=== PATIENT | female | born 1940 | race African-American/Black ===

== ENCOUNTER 2016-10-24 06:11 | Inpatient (IN) | payer MEDICARE, MEDICAID ==
[~2016-10-24] VITALS: Ht 165.1 cm; Wt 60.3 kg
[~2016-10-24 06:11] MED LIST: LEVO50TA52 PO
[2016-10-24 07:51] LABS: BASOPHILS % 0.3 % (0.0-2.0); EOSINOPHILS % 4.3 % (0.0-5.0); HEMATOCRIT. 33.7 % (36.0-48.0); HEMOGLOBIN. 11.1 g/dL (12.0-16.0); LYMPHOCYTES % 33.1 % (20.0-50.0); MEAN CORPUSCULAR HEMOGLOBIN 30.3 pg (28.0-32.0); MEAN PLATELET VOLUME 8.4 fl (7.4-10.4); MONOCYTES % 9.1 % (2.0-8.0); NEUTROPHILS % 53.2 % (40.0-76.0); PLATELET 184 x1000/uL (130-400); RED BLOOD CELL COUNT 3.66 mill/uL (4.2-5.4); RED CELL DISTRIBUTION WIDTH 15.3 % (11.6-14.6)
[2016-10-24 08:03] LABS: CARBON DIOXIDE 33 mEq/L (21-32); CHLORIDE 106 mEq/L (98-107)
[2016-10-24 08:09] LABS: TROPONIN I < 0.02 ng/mL (0.00-0.04)
[2016-10-24 08:50] LABS: CLARITY URINE CLEAR (CLEAR); COLOR URINE YELLOW (YELLOW); GLUCOSE URINE NEGATIVE (NEGATIVE); KETONES URINE NEGATIVE (NEGATIVE); LEUKOCYTE ESTERASE URINE NEGATIVE (NEGATIVE); NITRITE URINE NEGATIVE (NEGATIVE); OCCULT BLOOD URINE NEGATIVE (NEGATIVE); PROTEIN URINE NEGATIVE (NEGATIVE); SPECIFIC GRAVITY URINE 1.012 (1.005-1.030); UROBILINOGEN URINE 0.2 E.U./dL (0.2-1.0)
[2016-10-24] MEDS ORDERED: AMLO5TAB88 (10:30)
[2016-10-24] MEDS ORDERED: ASPI-1158 (10:30)
[2016-10-24] MEDS ORDERED: SODIUM CHLORIDE 0.9% 1,000 ML IV ONE (11:00)
[2016-10-24] MEDS ORDERED: MAGNESIUM/ALUMINUM HYDROXIDE/SIMETHICONE 30ML UDC PO PRN (14:30)
[2016-10-24] MEDS ORDERED: DOCUSATE SODIUM 100MG CAPSULE PO PRN (14:30)
[2016-10-24] MEDS ORDERED: HYDROMORPHONE HCL/PF 2MG/ML CPJ IV PRN (14:30)
[2016-10-24] MEDS ORDERED: LORAZEPAM 0.5MG TABLET PO PRN (14:30)
[2016-10-24] MEDS ORDERED: DIPHENHYDRAMINE 50MG/ML VIAL IV PRN (14:30)
[2016-10-24] MEDS ORDERED: ACETAMINOPHEN 325MG TABLET PO PRN (14:30)
[2016-10-24] MEDS ORDERED: ACETAMINOPHEN 650MG SUPP PR PRN (14:30)
[2016-10-24] MEDS ORDERED: ONDANSETRON HCL 4MG/2ML VIAL IV PRN (14:30)
[2016-10-24] MEDS ORDERED: LORAZEPAM 2MG/ML CPJ IV PRN (14:30)
[2016-10-24] MEDS ORDERED: SENNOSIDES 8.6MG TABLET PO PRN (15:15)
[2016-10-24 15:25] LABS: T4 FREE 1.06 ng/dL (0.76-1.46)
[2016-10-24 17:00] VITALS: BP 140/80
[2016-10-24] MEDS: CLONIDINE 0.1MG TABLET PO PRN (18:32)
[2016-10-24] MEDS: DOCUSATE SODIUM 100MG CAPSULE PO SCH (18:37)
[2016-10-24] MEDS: OMEPRAZOLE 20MG CAPSULE EXTENDED RELEASE PO SCH (18:37)
[2016-10-24] MEDS: SODIUM CHLORIDE 0.45% 1,000 ML IV SCH (18:51)
[2016-10-24 20:00] VITALS: BP 129/78
[2016-10-24] MEDS: AMLODIPINE 5MG TABLET PO SCH (21:00)
[2016-10-25] VITALS: BP 162/88
[2016-10-25 04:00] VITALS: BP 166/83
[2016-10-25] MEDS: CLONIDINE 0.1MG TABLET PO PRN (05:33)
[2016-10-25] MEDS: OMEPRAZOLE 20MG CAPSULE EXTENDED RELEASE PO SCH (05:33)
[2016-10-25] MEDS: LEVOTHYROXINE SODIUM 75MCG TABLET PO SCH (05:33)
[2016-10-25 07:07] LABS: BASOPHILS % 1.7 % (0.0-2.0); CARBON DIOXIDE 29 mEq/L (21-32); CHLORIDE 105 mEq/L (98-107); CREATINE KINASE 136 IU/L (26-192); CREATINE KINASE MB FRACTION 2.1 ng/mL (0.5-3.6); EOSINOPHILS % 4.6 % (0.0-5.0); HEMATOCRIT. 34.5 % (36.0-48.0); HEMOGLOBIN. 11.4 g/dL (12.0-16.0); LYMPHOCYTES % 28.6 % (20.0-50.0); MEAN CORPUSCULAR HEMOGLOBIN 30.5 pg (28.0-32.0); MEAN CORPUSCULAR VOLUME 92.4 fL (81.0-99.0); MEAN PLATELET VOLUME 8.6 fl (7.4-10.4); MONOCYTES % 9.8 % (2.0-8.0); NEUTROPHILS % 55.3 % (40.0-76.0); PLATELET 172 x1000/uL (130-400); RED BLOOD CELL COUNT 3.73 mill/uL (4.2-5.4); RED CELL DISTRIBUTION WIDTH 15.2 % (11.6-14.6); TROPONIN I < 0.02 ng/mL (0.00-0.04)
[2016-10-25 08:00] VITALS: BP 98/70
[2016-10-25] MEDS: AMLODIPINE 5MG TABLET PO SCH ×2 (08:58→23:10)
[2016-10-25] MEDS: SODIUM CHLORIDE 0.45% 1,000 ML IV SCH (08:58)
[2016-10-25] MEDS: DOCUSATE SODIUM 100MG CAPSULE PO SCH ×2 (08:58→16:13)
[2016-10-25] MEDS: ENOXAPARIN 40MG/0.4ML SYR SUBCUT SCH (08:58)
[2016-10-25] MEDS: ASPIRIN 81MG EC TABLET PO SCH (08:58)
[2016-10-25 10:58] LABS: *AMPHETAMINES SCREEN URINE NEGATIVE (NEGATIVE); *BARBITURATES SCREEN URINE NEGATIVE (NEGATIVE); *BENZODIAZEPINES SCREEN URINE NEGATIVE (NEGATIVE); *COCAINE SCREEN URINE NEGATIVE (NEGATIVE); CANNABINOID URINE SCREEN NEGATIVE (NEGATIVE); METHADONE URINE SCREEN NEGATIVE (NEGATIVE); OPIATES URINE SCREEN NEGATIVE (NEGATIVE); PHENCYCLIDINE URINE SCREEN NEGATIVE (NEGATIVE)
[2016-10-25 13:32] VITALS: BP 137/73
[2016-10-25 16:00] VITALS: BP 155/78
[2016-10-25 20:00] VITALS: BP 144/74
[2016-10-25] MEDS: LACTULOSE 20G/30ML UDC PO SCH (23:10)
[2016-10-26] VITALS: BP 140/74
[2016-10-26 04:00] VITALS: BP 138/72
[2016-10-26] MEDS: OMEPRAZOLE 20MG CAPSULE EXTENDED RELEASE PO SCH (07:06)
[2016-10-26] MEDS: LEVOTHYROXINE SODIUM 75MCG TABLET PO SCH (07:06)
[2016-10-26] MEDS: LACTULOSE 20G/30ML UDC PO SCH ×2 (07:06→14:00)
[2016-10-26 08:00] VITALS: BP 139/86
[2016-10-26] MEDS: DOCUSATE SODIUM 100MG CAPSULE PO SCH ×2 (08:47→16:31)
[2016-10-26] MEDS: AMLODIPINE 5MG TABLET PO SCH (08:47)
[2016-10-26] MEDS: ENOXAPARIN 40MG/0.4ML SYR SUBCUT SCH (08:47)
[2016-10-26] MEDS: ASPIRIN 81MG EC TABLET PO SCH (08:47)
[2016-10-26 12:00] VITALS: BP 130/80
[2016-10-26 12:24] VITALS: BP 139/85
[2016-10-26 16:00] VITALS: BP 100/52
== END 2016-10-26 19:15 | disposition home or self-care (01) | DRG 683 ==
LOC: ER 06:11 → ENRESERV 14:37 → 5WST 14:37
PROVIDERS: ADMIT Internal Medicine; ATTEND Internal Medicine
DX: N17.9 Acute kidney failure, unspecified (principal); I69.354 Hemiplegia and hemiparesis following cerebral infarction affecting left non-dominant side; E46 Unspecified protein-calorie malnutrition; I95.1 Orthostatic hypotension; D64.9 Anemia, unspecified; D72.819 Decreased white blood cell count, unspecified; E03.9 Hypothyroidism, unspecified; E78.00 Pure hypercholesterolemia, unspecified; E05.90 Thyrotoxicosis, unspecified without thyrotoxic crisis or storm; R47.1 Dysarthria and anarthria; R07.89 Other chest pain; E86.0 Dehydration; G90.8 Other disorders of autonomic nervous system; I11.9 Hypertensive heart disease without heart failure; Z68.22 Body mass index [BMI] 22.0-22.9, adult; Z79.899 Other long term (current) drug therapy; Z91.19 Patient's noncompliance with other medical treatment and regimen; Z79.82 Long term (current) use of aspirin; Z95.810 Presence of automatic (implantable) cardiac defibrillator; Z85.819 Personal history of malignant neoplasm of unspecified site of lip, oral cavity, and pharynx; I16.0 Hypertensive urgency
CPT/HCPCS: 36415; 71010; 74000; 80048; 80053; 80061; 80305; 81003; 82550; 82553; 83036; 83735; 83880; 84439; 84443; 84481; 84484; 85025; 85379; 92610; 93005; 93306; 93970; 96360; 96361; 96372; 99285; J1650; J7030

== ENCOUNTER 2017-01-29 16:47 | Emergency (ER) | payer MEDICARE, MEDICAID ==
[~2017-01-29] VITALS: Ht 165.1 cm; Wt 57.0 kg
[~2017-01-29 16:47] MED LIST changes: +AMLO5TAB88; +ASPI-1158
[2017-01-29 19:10] LABS: CARBON DIOXIDE 29 mEq/L (21-32); CHLORIDE 107 mEq/L (98-107)
[2017-01-29 19:15] LABS: TROPONIN I < 0.02 ng/mL (0.00-0.04)
[2017-01-29] MEDS ORDERED: HYDROCODONE/ACETAMINOPHEN 5/325MG TABLET PO ONE (19:30)
[2017-01-29 19:34] LABS: BASOPHILS % 0.6 % (0.0-2.0); EOSINOPHILS % 0.8 % (0.0-5.0); HEMOGLOBIN. 11.3 g/dL (12.0-16.0); LYMPHOCYTES % 8.7 % (20.0-50.0); MEAN CORPUSCULAR HEMOGLOBIN 30.3 pg (28.0-32.0); MEAN CORPUSCULAR VOLUME 91.3 fL (81.0-99.0); MONOCYTES % 6.5 % (2.0-8.0); NEUTROPHILS % 83.4 % (40.0-76.0); RED BLOOD CELL COUNT 3.72 mill/uL (4.2-5.4); RED CELL DISTRIBUTION WIDTH 16.1 % (11.6-14.6)
[2017-01-29 19:39] LABS: INR 1.1; PROTHROMBIN TIME 11.2 sec (9.4-11.6)
[2017-01-29 19:50] VITALS: BP 147/67
== END 2017-01-29 21:52 | disposition home or self-care (01) ==
LOC: ER 16:47
DX: M25.551 Pain in right hip (principal); I11.9 Hypertensive heart disease without heart failure; E03.9 Hypothyroidism, unspecified; M16.0 Bilateral primary osteoarthritis of hip; Z85.818 Personal history of malignant neoplasm of other sites of lip, oral cavity, and pharynx; Z79.82 Long term (current) use of aspirin; W01.0XXA Fall on same level from slipping, tripping and stumbling without subsequent striking against object, initial encounter; Y93.89 Activity, other specified; Y92.018 Other place in single-family (private) house as the place of occurrence of the external cause
CPT/HCPCS: 36415; 71010; 73522; 80053; 83690; 84484; 85025; 85610; 85730; 93005; 99285

== ENCOUNTER 2018-04-23 17:46 | Inpatient (IN) | payer MEDICARE, MEDICAID ==
[~2018-04-23] VITALS: Ht 170.2 cm; Wt 50.1 kg
[2018-04-23] MEDS ORDERED: SODIUM CHLORIDE 0.9% 1000ML BAG (SEPSIS BOLUS) IV ONE (18:45)
[2018-04-23 19:07] LABS: CLARITY URINE CLOUDY (CLEAR); COLOR URINE DARK YELLOW (YELLOW); KETONES URINE NEGATIVE (NEGATIVE); LEUKOCYTE ESTERASE URINE 1+ (NEGATIVE); NITRITE URINE NEGATIVE (NEGATIVE); OCCULT BLOOD URINE 3+ (NEGATIVE); PH URINE 5.5 (4.5-8.0); PROTEIN URINE 2+ (NEGATIVE); SPECIFIC GRAVITY URINE 1.022 (1.005-1.030)
[2018-04-23 19:29] LABS: HEMATOCRIT. 33.6 % (36.0-48.0); HEMOGLOBIN. 10.9 g/dL (12.0-16.0); MEAN CORPUSCULAR VOLUME 92.5 fL (81.0-99.0); MEAN PLATELET VOLUME 8.2 fl (7.4-10.4); PLATELET 195 x1000/uL (130-400); RED BLOOD CELL COUNT 3.63 mill/uL (4.2-5.4); RED CELL DISTRIBUTION WIDTH 15.6 % (11.6-14.6)
[2018-04-23 19:32] LABS: CHLORIDE 99 mEq/L (98-107); INR 1.1; PARTIAL THROMBOPLASTIN TIME 32.2 sec (23.4-31.0); PROTHROMBIN TIME 11.4 sec (9.1-11.1)
[2018-04-23] MEDS ORDERED: KCL 10MEQ/50ML PREMIX 50 ML IV ONE (19:45)
[2018-04-23] MEDS ORDERED: LEVOFLOXACIN 750MG PREMIX 150 ML IV ONE (19:45)
[2018-04-23 19:51] LABS: PLATELET ESTIMATE NORMAL
[2018-04-23] MEDS ORDERED: ASPIRIN 300MG SUPP PR ONE (20:45)
[2018-04-23] MEDS ORDERED: ONDANSETRON HCL 4MG/2ML INJ IV PRN (22:15)
[2018-04-23] MEDS ORDERED: ACETAMINOPHEN 325MG TABLET PO PRN (22:15)
[2018-04-23] MEDS ORDERED: CLONIDINE 0.1MG TABLET PO PRN (22:15)
[2018-04-23] MEDS ORDERED: MAGNESIUM/ALUMINUM HYDROXIDE/SIMETHICONE 30ML UDC PO PRN (22:15)
[2018-04-24] MEDS: SODIUM CHLORIDE 0.9% 1,000 ML IV SCH ×4 (01:05→17:39)
[2018-04-24 06:27] LABS: CHLORIDE 105 mEq/L (98-107)
[2018-04-24 12:30] VITALS: BP 130/62
[2018-04-24 12:53] VITALS: BP 124/68
[2018-04-24 13:04] VITALS: BP 124/68
[2018-04-24] MEDS ORDERED: LEVOTHYROXINE SODIUM 100 MCG/ VIAL IV SCH (14:00)
[2018-04-24] MEDS: SODIUM CHLORIDE 0.9% INJ 3ML FLUSH IVF SCH ×2 (15:31→21:22)
[2018-04-24 15:58] VITALS: BP 103/54
[2018-04-24] MEDS: GENTAMICIN 100MG PREMIX 50 ML IV SCH (17:40)
[2018-04-24 20:06] VITALS: BP 124/85
[2018-04-24] MEDS ORDERED: LEVOFLOXACIN 250MG PREMIX 50 ML IV SCH (21:00)
[2018-04-25 00:03] VITALS: BP 100/58
[2018-04-25 04:00] VITALS: BP 115/61
[2018-04-25] MEDS: SODIUM CHLORIDE 0.9% INJ 3ML FLUSH IVF SCH ×3 (05:16→21:28)
[2018-04-25 07:42] LABS: HEMATOCRIT. 28.4 % (36.0-48.0); HEMOGLOBIN. 9.3 g/dL (12.0-16.0); MEAN CORPUSCULAR HEMOGLOBIN 29.8 pg (28.0-32.0); MEAN CORPUSCULAR VOLUME 90.6 fL (81.0-99.0); MEAN PLATELET VOLUME 8.7 fl (7.4-10.4); PLATELET 87 x1000/uL (130-400); RED BLOOD CELL COUNT 3.13 mill/uL (4.2-5.4); RED CELL DISTRIBUTION WIDTH 15.6 % (11.6-14.6)
[2018-04-25 08:00] VITALS: BP 116/60
[2018-04-25 08:50] LABS: PLATELET ESTIMATE DECREASED
[2018-04-25] MEDS ORDERED: LEVOTHYROXINE SODIUM 100 MCG/ VIAL IV SCH (10:00)
[2018-04-25] MEDS: GENTAMICIN 100MG PREMIX 50 ML IV SCH (10:22)
[2018-04-25 11:50] VITALS: BP 126/63
[2018-04-25] MEDS ORDERED: POTASSIUM CHLORIDE INJ 40 MEQ in DEXT 5% WATER 250 ML IV NR (15:30)
[2018-04-25] MEDS: SODIUM CHLORIDE 0.9% 1,000 ML IV SCH ×2 (15:42→22:53)
[2018-04-25 15:55] VITALS: BP 109/64
[2018-04-25] MEDS: CEFEPIME 1,000 MG in DEXTROSE 5% WATER 50 ML IV SCH (17:53)
[2018-04-25 20:00] VITALS: BP 117/56
[2018-04-25] MEDS ORDERED: IOHEXOL-350 100 ML BOTTLE ONE (20:41)
[2018-04-26 00:04] VITALS: BP 105/53
[2018-04-26 04:00] VITALS: BP 110/65
[2018-04-26] MEDS ORDERED: GENTAMICIN 120MG PREMIX 100 ML IV SCH (04:00)
[2018-04-26] MEDS: SODIUM CHLORIDE 0.9% INJ 3ML FLUSH IVF SCH ×3 (05:56→21:23)
[2018-04-26] MEDS: CEFEPIME 1,000 MG in DEXTROSE 5% WATER 50 ML IV SCH ×2 (05:56→15:48)
[2018-04-26] MEDS: LEVOTHYROXINE SODIUM 25MCG TABLET PO SCH (05:57)
[2018-04-26 07:00] LABS: CHLORIDE 112 mEq/L (98-107); HEMATOCRIT. 31.4 % (36.0-48.0); HEMOGLOBIN. 10.1 g/dL (12.0-16.0); MEAN CORPUSCULAR HEMOGLOBIN 29.7 pg (28.0-32.0); MEAN PLATELET VOLUME 9.9 fl (7.4-10.4); PLATELET 71 x1000/uL (130-400); RED BLOOD CELL COUNT 3.41 mill/uL (4.2-5.4); RED CELL DISTRIBUTION WIDTH 16.2 % (11.6-14.6)
[2018-04-26 08:00] VITALS: BP 105/57
[2018-04-26 12:00] VITALS: BP 114/52
[2018-04-26 16:00] VITALS: BP 120/57
[2018-04-26 20:47] VITALS: BP 125/53
[2018-04-26] MEDS: SODIUM CHLORIDE 0.9% 1,000 ML IV SCH (21:24)
[2018-04-27] VITALS: BP 123/59
[2018-04-27] MEDS: CEFEPIME 1,000 MG in DEXTROSE 5% WATER 50 ML IV SCH ×2 (03:30→16:13)
[2018-04-27 04:36] VITALS: BP 127/62
[2018-04-27] MEDS: SODIUM CHLORIDE 0.9% INJ 3ML FLUSH IVF SCH ×3 (06:41→21:55)
[2018-04-27] MEDS: LEVOTHYROXINE SODIUM 25MCG TABLET PO SCH (07:20)
[2018-04-27 08:00] VITALS: BP 144/69
[2018-04-27 08:21] LABS: PLATELET ESTIMATE DECREASED
[2018-04-27 12:00] VITALS: BP 119/61
[2018-04-27] MEDS: SODIUM CHLORIDE 0.9% 1,000 ML IV SCH (13:56)
[2018-04-27 16:00] VITALS: BP 109/48
[2018-04-27] MEDS: DEXTROSE 5% WATER 1,000 ML IV SCH (17:09)
[2018-04-28] VITALS: BP 129/65
[2018-04-28 04:00] VITALS: BP 130/55
[2018-04-28] MEDS: CEFEPIME 1,000 MG in DEXTROSE 5% WATER 50 ML IV SCH ×2 (04:29→16:31)
[2018-04-28] MEDS: SODIUM CHLORIDE 0.9% INJ 3ML FLUSH IVF SCH ×3 (05:43→22:00)
[2018-04-28] MEDS: LEVOTHYROXINE SODIUM 25MCG TABLET PO SCH (06:51)
[2018-04-28 08:12] VITALS: BP 124/56
[2018-04-28 09:25] LABS: HEMATOCRIT. 27.1 % (36.0-48.0); HEMOGLOBIN. 8.8 g/dL (12.0-16.0); MEAN CORPUSCULAR HEMOGLOBIN 29.8 pg (28.0-32.0); MEAN CORPUSCULAR VOLUME 91.9 fL (81.0-99.0); MEAN PLATELET VOLUME 9.9 fl (7.4-10.4); PLATELET 78 x1000/uL (130-400); RED BLOOD CELL COUNT 2.95 mill/uL (4.2-5.4); RED CELL DISTRIBUTION WIDTH 16.3 % (11.6-14.6)
[2018-04-28 09:26] LABS: CHLORIDE 117 mEq/L (98-107)
[2018-04-28 09:28] LABS: INR 1.1; PARTIAL THROMBOPLASTIN TIME 30.9 sec (23.4-31.0); PROTHROMBIN TIME 10.9 sec (9.1-11.1)
[2018-04-28 09:31] LABS: PHOSPHORUS 2.2 mg/dL (2.5-4.9)
[2018-04-28] MEDS: DEXTROSE 5% WATER 1,000 ML IV SCH (10:22)
[2018-04-28 12:30] VITALS: BP 138/70
[2018-04-28] MEDS ORDERED: MIDAZOLAM HCL 5 MG/5 ML VIAL IV PRN (13:26)
[2018-04-28] MEDS ORDERED: MIDAZOLAM HCL 5 MG/5 ML VIAL ONE (13:26)
[2018-04-28] MEDS ORDERED: FENTANYL CITRATE/PF 50MCG/ML 2ML VIAL ONE (13:27)
[2018-04-28] MEDS ORDERED: SIMETHICONE 40 MG/0.6 ML 30ML ONE (13:27)
[2018-04-28] MEDS ORDERED: SODIUM CHLORIDE 0.9% 10ML VIAL ONE (15:14)
[2018-04-28 15:40] VITALS: BP 138/66
[2018-04-28 16:12] LABS: PLATELET ESTIMATE DECREASED
[2018-04-28 20:29] VITALS: BP 118/52
[2018-04-28] MEDS: METOCLOPRAMIDE HCL 10MG/2ML VIAL IV SCH (23:55)
[2018-04-29 00:20] VITALS: BP 146/66
[2018-04-29] MEDS: CEFEPIME 1,000 MG in DEXTROSE 5% WATER 50 ML IV SCH ×2 (04:21→16:39)
[2018-04-29 04:36] VITALS: BP 121/53
[2018-04-29] MEDS: METOCLOPRAMIDE HCL 10MG/2ML VIAL IV SCH ×3 (05:21→18:12)
[2018-04-29] MEDS: SODIUM CHLORIDE 0.9% INJ 3ML FLUSH IVF SCH ×3 (05:22→21:06)
[2018-04-29] MEDS: LEVOTHYROXINE SODIUM 25MCG TABLET PO SCH (06:28)
[2018-04-29 08:00] VITALS: BP 133/64
[2018-04-29] MEDS: DEXTROSE 5% WATER 1,000 ML IV SCH (08:29)
[2018-04-29 12:00] VITALS: BP 104/50
[2018-04-29 15:27] VITALS: BP 119/54
[2018-04-29 20:00] VITALS: BP 115/53
[2018-04-30] VITALS: BP 168/60
[2018-04-30] MEDS: METOCLOPRAMIDE HCL 10MG/2ML VIAL IV SCH ×3 (00:34→13:17)
[2018-04-30 04:00] VITALS: BP 124/62
[2018-04-30] MEDS: CEFEPIME 1,000 MG in DEXTROSE 5% WATER 50 ML IV SCH ×2 (05:18→16:00)
[2018-04-30] MEDS: DEXTROSE 5% WATER 1,000 ML IV SCH (05:19)
[2018-04-30] MEDS: SODIUM CHLORIDE 0.9% INJ 3ML FLUSH IVF SCH ×2 (05:20→13:19)
[2018-04-30] MEDS: LEVOTHYROXINE SODIUM 25MCG TABLET PO SCH (06:24)
[2018-04-30 08:00] VITALS: BP 136/65
[2018-04-30 11:55] LABS: HEMATOCRIT. 26.7 % (36.0-48.0); HEMOGLOBIN. 8.5 g/dL (12.0-16.0); MEAN CORPUSCULAR HEMOGLOBIN 29.5 pg (28.0-32.0); MEAN CORPUSCULAR VOLUME 92.6 fL (81.0-99.0); MEAN PLATELET VOLUME 10.6 fl (7.4-10.4); PLATELET 154 x1000/uL (130-400); RED BLOOD CELL COUNT 2.88 mill/uL (4.2-5.4)
[2018-04-30 12:03] LABS: CHLORIDE 113 mEq/L (98-107)
[2018-04-30 13:44] VITALS: BP 136/65
[2018-04-30 19:55] LABS: PLATELET ESTIMATE NORMAL
== END 2018-04-30 17:48 | DRG 871 ==
LOC: ER 17:46 → 6WST 20:58 → EDBEDREQ 21:04 → EDBEDREQTM 21:04 → ENRESERV 04-24 10:54
PROVIDERS: ADMIT Internal Medicine Nephrology; ATTEND Internal Medicine Nephrology
PROC: 0DH63UZ Insertion of Feeding Device into Stomach, Percutaneous Approach (ICD-10-PCS; principal; 2018-04-28)
PROC: 0DB68ZX Excision of Stomach, Via Natural or Artificial Opening Endoscopic, Diagnostic (ICD-10-PCS; 2018-04-28)
DX: A41.9 Sepsis, unspecified organism (principal); L89.893 Pressure ulcer of other site, stage 3; E43 Unspecified severe protein-calorie malnutrition; G93.41 Metabolic encephalopathy; R65.21 Severe sepsis with septic shock; N17.9 Acute kidney failure, unspecified; N39.0 Urinary tract infection, site not specified; E87.1 Hypo-osmolality and hyponatremia; Z68.1 Body mass index [BMI] 19.9 or less, adult; B96.1 Klebsiella pneumoniae [K. pneumoniae] as the cause of diseases classified elsewhere; E03.9 Hypothyroidism, unspecified; B96.89 Other specified bacterial agents as the cause of diseases classified elsewhere; L89.150 Pressure ulcer of sacral region, unstageable; L89.210 Pressure ulcer of right hip, unstageable; L89.890 Pressure ulcer of other site, unstageable; I10 Essential (primary) hypertension; E86.0 Dehydration; Z85.819 Personal history of malignant neoplasm of unspecified site of lip, oral cavity, and pharynx; Z95.0 Presence of cardiac pacemaker; L89.90 Pressure ulcer of unspecified site, unspecified stage; D63.8 Anemia in other chronic diseases classified elsewhere; D69.6 Thrombocytopenia, unspecified; E87.6 Hypokalemia; K29.60 Other gastritis without bleeding; Z85.850 Personal history of malignant neoplasm of thyroid; Z91.19 Patient's noncompliance with other medical treatment and regimen; Z79.82 Long term (current) use of aspirin; Z79.899 Other long term (current) drug therapy
CPT/HCPCS: 36415; 70496; 71045; 80048; 82140; 83605; 83735; 84100; 84134; 84145; 84443; 84484; 87077; 87186; 88305; 88312; 88313; 92610; 93005; 93306; 93922; 96374; 96375; 97110; 97162; 97530; 99291; A6261; C1893; J0692; J1580; J1956; J2250; J2765; J3010; J3480; J3490; J7030; J7060; J7070; Q9967

== ENCOUNTER 2018-06-15 17:31 | Inpatient (IN) | payer MEDICARE, MEDICAID ==
[~2018-06-15] VITALS: Ht 154.9 cm; Wt 59.4 kg
[2018-06-15] VITALS (15 sets, daily range): BP systolic 98–131; BP diastolic 51–64
[~2018-06-15 17:31] MED LIST changes: +ETOMIDATE 2MG/ML 10ML VIAL IV ONE; +SUCCINYLCHOLINE CHLORIDE 200MG/10ML IV ONE
[2018-06-15] MEDS ORDERED: ACETAMINOPHEN 650MG SUPP PR STA (17:47)
[2018-06-15] MEDS ORDERED: SODIUM CHLORIDE 0.9% 1000ML BAG (SEPSIS BOLUS) IV ONE (18:00)
[2018-06-15] MEDS ORDERED: PIPERACILLIN/TAZ 3.375G PREMIX 50 ML IV ONE (18:00)
[2018-06-15] MEDS ORDERED: VANCOMYCIN 1 G PREMIX 200 ML IV ONE (18:00)
[2018-06-15 18:10] LABS: HEMATOCRIT. 22.6 % (36.0-48.0); MEAN CORPUSCULAR HEMOGLOBIN 28.3 pg (28.0-32.0); MEAN CORPUSCULAR VOLUME 91.5 fL (81.0-99.0); MEAN PLATELET VOLUME 7.9 fl (7.4-10.4); PLATELET 390 x1000/uL (130-400); RED BLOOD CELL COUNT 2.47 mill/uL (4.2-5.4); RED CELL DISTRIBUTION WIDTH 22.4 % (11.6-14.6)
[2018-06-15 18:16] LABS: CHLORIDE 98 mEq/L (98-107)
[2018-06-15 18:17] LABS: INR 1.1; PROTHROMBIN TIME 11.5 sec (9.1-11.1)
[2018-06-15 18:38] LABS: PLATELET ESTIMATE NORMAL
[2018-06-15] MEDS ORDERED: MIDAZOLAM HCL 50 MG in DEXTROSE 5% WATER 40 ML IV ONE (19:00)
[2018-06-15] MEDS ORDERED: MIDAZOLAM HCL 2 MG/2 ML VIAL IV ONE (19:00)
[2018-06-15 19:45] LABS: CLARITY URINE TURBID (CLEAR); COLOR URINE YELLOW (YELLOW); KETONES URINE NEGATIVE (NEGATIVE); LEUKOCYTE ESTERASE URINE 3+ (NEGATIVE); NITRITE URINE NEGATIVE (NEGATIVE); OCCULT BLOOD URINE 3+ (NEGATIVE); PH URINE 6.5 (4.5-8.0); PROTEIN URINE 2+ (NEGATIVE); SPECIFIC GRAVITY URINE 1.015 (1.005-1.030)
[2018-06-15] MEDS ORDERED: MIDAZOLAM HCL 50 MG in DEXTROSE 5% WATER 40 ML IV NR (19:45)
[2018-06-15 21:30] LABS: BG BASE EXCESS 4.6 mmol/L (-2.0-2.0); BG CARBOXYHEMOGLOBIN 0.3 % (0.5-1.5); BG DEOXYHEMOGLOBIN 2.1 % (0.0-5.0); BG FRACTION INSPIRED OXYGEN 70; BG HCO3 ACT 27.5 mmol/L (22.0-26.0); BG METHEMOGLOBIN 0.3 % (0.0-1.5); BG OXYGEN SATURATION 97.9 % (92.0-98.5); BG OXYHEMOGLOBIN 97.3 % (94.0-97.0); BG PCO2 34.3 mmHg (35.0-45.0); BG PH 7.522 (7.350-7.450); BG PO2 101.5 mmHg (75.0-100.0); BG SAMPLE SITE RIGHT RADIAL; BG TIDAL VOLUME(mL) 500 mL; BG TOTAL HEMOGLOBIN 9.3 g/dL (12.0-18.0); BG VENT MODE VENT - A/C; BG VENT RATE 14 set
[2018-06-15] MEDS ORDERED: ACETAMINOPHEN 325MG TABLET PO PRN (21:59)
[2018-06-15] MEDS ORDERED: DIPHENHYDRAMINE 25MG CAPSULE PO PRN (22:00)
[2018-06-15] MEDS ORDERED: ONDANSETRON HCL 4MG/2ML INJ IV PRN (22:00)
[2018-06-15] MEDS ORDERED: ACETAMINOPHEN 650MG/20.3ML UDC GT PRN (22:00)
[2018-06-15] MEDS ORDERED: LORAZEPAM 2MG/ML CPJ IV PRN (22:00)
[2018-06-15] MEDS ORDERED: VANCOMYCIN 1 G PREMIX 200 ML IV SCH (22:00)
[2018-06-15] MEDS ORDERED: CLONIDINE 0.1MG TABLET PO PRN (22:00)
[2018-06-15] MEDS: PANTOPRAZOLE SODIUM 40 MG/VIAL IV SCH (22:39)
[2018-06-15] MEDS ORDERED: PROPOFOL 10MG/ML 100ML 100 ML IV PRN (22:45)
[2018-06-16] VITALS (57 sets, daily range): BP systolic 92–138; BP diastolic 43–70
[2018-06-16 01:27] LABS: CREATINE KINASE MB FRACTION 1.9 ng/mL (0.5-3.6)
[2018-06-16] MEDS: IPRATROPIUM/ALBUTEROL 0.5-3(2.5)MG/3ML NEB HHN SCH ×4 (01:30→13:17)
[2018-06-16] MEDS: LEVOTHYROXINE SODIUM 50MCG TABLET PO SCH (05:32)
[2018-06-16 05:56] LABS: CREATINE KINASE MB FRACTION 1.9 ng/mL (0.5-3.6)
[2018-06-16 07:04] LABS: HEMOGLOBIN. 9.8 g/dL (12.0-16.0); MEAN CORPUSCULAR HEMOGLOBIN 29.1 pg (28.0-32.0); MEAN CORPUSCULAR VOLUME 89.4 fL (81.0-99.0); PLATELET 328 x1000/uL (130-400); RED BLOOD CELL COUNT 3.36 mill/uL (4.2-5.4); RED CELL DISTRIBUTION WIDTH 20.3 % (11.6-14.6)
[2018-06-16 07:48] LABS: BG BASE EXCESS 5.5 mmol/L (-2.0-2.0); BG CARBOXYHEMOGLOBIN 0.3 % (0.5-1.5); BG DEOXYHEMOGLOBIN 0.9 % (0.0-5.0); BG HCO3 ACT 27.6 mmol/L (22.0-26.0); BG METHEMOGLOBIN 0.1 % (0.0-1.5); BG OXYGEN SATURATION 99.1 % (92.0-98.5); BG OXYHEMOGLOBIN 98.7 % (94.0-97.0); BG PCO2 31.1 mmHg (35.0-45.0); BG PH 7.566 (7.350-7.450); BG PO2 199.8 mmHg (75.0-100.0); BG SAMPLE SITE RIGHT RADIAL; BG TIDAL VOLUME(mL) 500 mL; BG TOTAL HEMOGLOBIN 9.9 g/dL (12.0-18.0); BG VENT MODE VENT - A/C; BG VENT RATE 14 set
[2018-06-16] MEDS: PANTOPRAZOLE SODIUM 40 MG/VIAL IV SCH (09:10)
[2018-06-16 09:11] LABS: PLATELET ESTIMATE NORMAL
[2018-06-16] MEDS ORDERED: IPRATROPIUM/ALBUTEROL 0.5-3(2.5)MG/3ML NEB HHN PRN (09:45)
[2018-06-16] MEDS: VANCOMYCIN 500 MG PREMIX 100 ML IV SCH ×2 (09:53→20:09)
[2018-06-16] MEDS ORDERED: DOPAMINE 800MG/500ML PREMIX 500 ML IV PRN (11:45)
[2018-06-16] MEDS: PIPERACILLIN/TAZ 3.375G PREMIX 50 ML IV SCH ×2 (12:05→18:00)
[2018-06-16] MEDS ORDERED: LIDOCAINE HCL 1% 20ML VIAL (Pyxis) INJ ONE (12:50)
[2018-06-17] VITALS (50 sets, daily range): BP systolic 79–140; BP diastolic 40–76
[2018-06-17] MEDS: PIPERACILLIN/TAZ 3.375G PREMIX 50 ML IV SCH ×2 (00:42→06:44)
[2018-06-17] MEDS: IPRATROPIUM/ALBUTEROL 0.5-3(2.5)MG/3ML NEB HHN SCH ×4 (01:58→20:52)
[2018-06-17] MEDS: LEVOTHYROXINE SODIUM 50MCG TABLET PO SCH (06:44)
[2018-06-17 08:00] LABS: BG BASE EXCESS 5.8 mmol/L (-2.0-2.0); BG CARBOXYHEMOGLOBIN 0.2 % (0.5-1.5); BG HCO3 ACT 28.5 mmol/L (22.0-26.0); BG METHEMOGLOBIN 0.3 % (0.0-1.5); BG OXYHEMOGLOBIN 98.5 % (94.0-97.0); BG PH 7.541 (7.350-7.450); BG SAMPLE SITE RIGHT RADIAL; BG TIDAL VOLUME(mL) 450 mL; BG TOTAL HEMOGLOBIN 9.5 g/dL (12.0-18.0); BG VENT MODE VENT - A/C; BG VENT RATE 12 set
[2018-06-17] MEDS: VANCOMYCIN 500 MG PREMIX 100 ML IV SCH ×2 (08:32→21:42)
[2018-06-17] MEDS: PANTOPRAZOLE SODIUM 40 MG/VIAL IV SCH (08:35)
[2018-06-17] MEDS ORDERED: MEROPENEM 500 MG in SODIUM CHLORIDE 0.9% 50 ML IV SCH (10:30)
[2018-06-17] MEDS ORDERED: SODIUM CHLORIDE 3% FOR INH 4ML UD NEB INH SCH (12:00)
[2018-06-17] MEDS: MEROPENEM 1000MG in NORMAL SALINE 100ML IV SCH ×2 (13:13→23:23)
[2018-06-17] MEDS: ACETYLCYSTEINE 100MG/ML 10% VIAL 4ML INH SCH ×2 (13:23→20:55)
[2018-06-18] VITALS (62 sets, daily range): BP systolic 72–138; BP diastolic 40–84
[2018-06-18] MEDS: ACETYLCYSTEINE 100MG/ML 10% VIAL 4ML INH SCH ×3 (02:38→16:11)
[2018-06-18] MEDS: IPRATROPIUM/ALBUTEROL 0.5-3(2.5)MG/3ML NEB HHN SCH ×5 (02:38→21:06)
[2018-06-18 05:58] LABS: CHLORIDE 102 mEq/L (98-107)
[2018-06-18] MEDS: LEVOTHYROXINE SODIUM 50MCG TABLET PO SCH (06:19)
[2018-06-18] MEDS: VANCOMYCIN 500 MG PREMIX 100 ML IV SCH (08:20)
[2018-06-18] MEDS: MEROPENEM 1000MG in NORMAL SALINE 100ML IV SCH ×2 (09:18→22:31)
[2018-06-18] MEDS: PANTOPRAZOLE SODIUM 40 MG/VIAL IV SCH (09:22)
[2018-06-18 09:23] LABS: BG BASE EXCESS 7.6 mmol/L (-2.0-2.0); BG CARBOXYHEMOGLOBIN 0.1 % (0.5-1.5); BG DEOXYHEMOGLOBIN 1.2 % (0.0-5.0); BG FRACTION INSPIRED OXYGEN 45; BG HCO3 ACT 31.1 mmol/L (22.0-26.0); BG METHEMOGLOBIN 0.3 % (0.0-1.5); BG OXYGEN SATURATION 98.8 % (92.0-98.5); BG OXYHEMOGLOBIN 98.4 % (94.0-97.0); BG PCO2 39.2 mmHg (35.0-45.0); BG PH 7.517 (7.350-7.450); BG SAMPLE SITE RIGHT RADIAL; BG TIDAL VOLUME(mL) 450 mL; BG TOTAL HEMOGLOBIN 9.4 g/dL (12.0-18.0); BG VENT MODE VENT - A/C; BG VENT RATE 12 set
[2018-06-18] MEDS: AMPICILLIN 2,000 MG in SODIUM CHLORIDE 0.9% 100 ML IV SCH ×2 (16:41→23:15)
[2018-06-18] MEDS ORDERED: POTASSIUM CHLORIDE 20MEQ TABLET SR PO SCH (23:30)
[2018-06-19] VITALS (78 sets, daily range): BP systolic 86–147; BP diastolic 46–85
[2018-06-19] MEDS: IPRATROPIUM/ALBUTEROL 0.5-3(2.5)MG/3ML NEB HHN SCH ×5 (00:31→19:54)
[2018-06-19] MEDS: ACETYLCYSTEINE 100MG/ML 10% VIAL 4ML INH SCH ×3 (00:32→16:28)
[2018-06-19] MEDS: POTASSIUM CHLORIDE 20MEQ/PACKET PO SCH (02:37)
[2018-06-19] MEDS: LEVOTHYROXINE SODIUM 50MCG TABLET PO SCH (05:47)
[2018-06-19 06:15] LABS: BASOPHILS % 0.8 % (0.0-2.0); EOSINOPHILS % 1.6 % (0.0-5.0); HEMATOCRIT. 29.2 % (36.0-48.0); HEMOGLOBIN. 9.3 g/dL (12.0-16.0); LYMPHOCYTES % 7.2 % (20.0-50.0); MEAN CORPUSCULAR VOLUME 90.7 fL (81.0-99.0); MEAN PLATELET VOLUME 7.9 fl (7.4-10.4); MONOCYTES % 3.6 % (2.0-8.0); NEUTROPHILS % 86.8 % (40.0-76.0); PLATELET 525 x1000/uL (130-400); RED BLOOD CELL COUNT 3.22 mill/uL (4.2-5.4); RED CELL DISTRIBUTION WIDTH 20.4 % (11.6-14.6)
[2018-06-19 06:30] LABS: CHLORIDE 106 mEq/L (98-107)
[2018-06-19 06:54] LABS: PHOSPHORUS 2.3 mg/dL (2.5-4.9)
[2018-06-19] MEDS: PANTOPRAZOLE SODIUM 40 MG/VIAL IV SCH (07:52)
[2018-06-19] MEDS: AMPICILLIN 2,000 MG in SODIUM CHLORIDE 0.9% 100 ML IV SCH ×2 (07:52→17:04)
[2018-06-19 08:22] LABS: BG BASE EXCESS 7.6 mmol/L (-2.0-2.0); BG CARBOXYHEMOGLOBIN 0.3 % (0.5-1.5); BG HCO3 ACT 31.5 mmol/L (22.0-26.0); BG METHEMOGLOBIN 0.3 % (0.0-1.5); BG OXYHEMOGLOBIN 98.4 % (94.0-97.0); BG PCO2 41.6 mmHg (35.0-45.0); BG PH 7.497 (7.350-7.450); BG PO2 158.3 mmHg (75.0-100.0); BG PRESSURE SUPPORT 14; BG SAMPLE SITE RIGHT RADIAL; BG TIDAL VOLUME(mL) 450 mL; BG TOTAL HEMOGLOBIN 9.3 g/dL (12.0-18.0); BG VENT MODE VENT - SIMV; BG VENT RATE 10 set
[2018-06-19] MEDS: MEROPENEM 1000MG in NORMAL SALINE 100ML IV SCH ×2 (09:31→21:07)
[2018-06-20] VITALS (48 sets, daily range): BP systolic 96–153; BP diastolic 46–78
[2018-06-20] MEDS: AMPICILLIN 2,000 MG in SODIUM CHLORIDE 0.9% 100 ML IV SCH ×4 (00:10→23:43)
[2018-06-20] MEDS: IPRATROPIUM/ALBUTEROL 0.5-3(2.5)MG/3ML NEB HHN SCH ×4 (01:58→19:59)
[2018-06-20] MEDS: ACETYLCYSTEINE 100MG/ML 10% VIAL 4ML INH SCH ×2 (01:59→09:51)
[2018-06-20] MEDS: LEVOTHYROXINE SODIUM 50MCG TABLET PO SCH (06:46)
[2018-06-20] MEDS: MEROPENEM 1000MG in NORMAL SALINE 100ML IV SCH ×2 (09:50→20:52)
[2018-06-20] MEDS: PANTOPRAZOLE SODIUM 40 MG/VIAL IV SCH (09:50)
[2018-06-20] MEDS: POTASSIUM CHLORIDE 20MEQ/PACKET PO SCH (09:51)
[2018-06-20 13:06] LABS: HEMATOCRIT. 25.5 % (36.0-48.0); HEMOGLOBIN. 8.1 g/dL (12.0-16.0); MEAN CORPUSCULAR HEMOGLOBIN 29.3 pg (28.0-32.0); MEAN CORPUSCULAR VOLUME 91.9 fL (81.0-99.0); MEAN PLATELET VOLUME 7.8 fl (7.4-10.4); PLATELET 529 x1000/uL (130-400); RED BLOOD CELL COUNT 2.78 mill/uL (4.2-5.4); RED CELL DISTRIBUTION WIDTH 20.3 % (11.6-14.6)
[2018-06-20 13:22] LABS: CHLORIDE 110 mEq/L (98-107)
[2018-06-20 14:19] LABS: PLATELET ESTIMATE INCREASED
[2018-06-21] VITALS (49 sets, daily range): BP systolic 95–157; BP diastolic 45–82
[2018-06-21] MEDS: IPRATROPIUM/ALBUTEROL 0.5-3(2.5)MG/3ML NEB HHN SCH ×4 (02:07→20:36)
[2018-06-21] MEDS: LEVOTHYROXINE SODIUM 50MCG TABLET PO SCH (05:58)
[2018-06-21 06:08] LABS: BASOPHILS % 1.1 % (0.0-2.0); EOSINOPHILS % 1.8 % (0.0-5.0); HEMATOCRIT. 26.1 % (36.0-48.0); HEMOGLOBIN. 8.4 g/dL (12.0-16.0); LYMPHOCYTES % 10.6 % (20.0-50.0); MEAN CORPUSCULAR HEMOGLOBIN 29.3 pg (28.0-32.0); MEAN CORPUSCULAR VOLUME 91.5 fL (81.0-99.0); MEAN PLATELET VOLUME 7.9 fl (7.4-10.4); MONOCYTES % 6.9 % (2.0-8.0); NEUTROPHILS % 79.6 % (40.0-76.0); PLATELET 546 x1000/uL (130-400); RED BLOOD CELL COUNT 2.85 mill/uL (4.2-5.4); RED CELL DISTRIBUTION WIDTH 20.2 % (11.6-14.6)
[2018-06-21] MEDS: AMPICILLIN 2,000 MG in SODIUM CHLORIDE 0.9% 100 ML IV SCH ×3 (08:16→23:45)
[2018-06-21 08:49] LABS: BG BASE EXCESS 7.3 mmol/L (-2.0-2.0); BG CARBOXYHEMOGLOBIN 0.3 % (0.5-1.5); BG DEOXYHEMOGLOBIN 0.7 % (0.0-5.0); BG FRACTION INSPIRED OXYGEN 40; BG HCO3 ACT 31.5 mmol/L (22.0-26.0); BG METHEMOGLOBIN 0.1 % (0.0-1.5); BG OXYGEN SATURATION 99.3 % (92.0-98.5); BG OXYHEMOGLOBIN 98.9 % (94.0-97.0); BG PCO2 43.2 mmHg (35.0-45.0); BG PO2 175.7 mmHg (75.0-100.0); BG PRESSURE SUPPORT 12; BG SAMPLE SITE RIGHT RADIAL; BG TIDAL VOLUME(mL) 450 mL; BG TOTAL HEMOGLOBIN 8.7 g/dL (12.0-18.0); BG VENT MODE VENT - SIMV; BG VENT RATE 8 set
[2018-06-21] MEDS: MEROPENEM 1000MG in NORMAL SALINE 100ML IV SCH ×2 (09:01→21:20)
[2018-06-21] MEDS: POTASSIUM CHLORIDE 20MEQ/PACKET PO SCH (09:14)
[2018-06-21] MEDS: PANTOPRAZOLE SODIUM 40 MG/VIAL IV SCH (09:14)
[2018-06-22] VITALS (46 sets, daily range): BP systolic 99–146; BP diastolic 47–72
[2018-06-22] MEDS: IPRATROPIUM/ALBUTEROL 0.5-3(2.5)MG/3ML NEB HHN SCH ×4 (01:59→21:05)
[2018-06-22] MEDS: LEVOTHYROXINE SODIUM 50MCG TABLET PO SCH (06:07)
[2018-06-22 08:48] LABS: BG BASE EXCESS 6.6 mmol/L (-2.0-2.0); BG CARBOXYHEMOGLOBIN 0.3 % (0.5-1.5); BG DEOXYHEMOGLOBIN 0.9 % (0.0-5.0); BG FRACTION INSPIRED OXYGEN 40; BG HCO3 ACT 30.9 mmol/L (22.0-26.0); BG METHEMOGLOBIN 0.3 % (0.0-1.5); BG OXYGEN SATURATION 99.1 % (92.0-98.5); BG OXYHEMOGLOBIN 98.5 % (94.0-97.0); BG PCO2 43.6 mmHg (35.0-45.0); BG PH 7.469 (7.350-7.450); BG PO2 161.7 mmHg (75.0-100.0); BG PRESSURE SUPPORT 12; BG SAMPLE SITE RIGHT RADIAL; BG TIDAL VOLUME(mL) 450 mL; BG TOTAL HEMOGLOBIN 9.2 g/dL (12.0-18.0); BG VENT MODE VENT - SIMV; BG VENT RATE 8 set
[2018-06-22] MEDS: MEROPENEM 1000MG in NORMAL SALINE 100ML IV SCH ×2 (09:06→21:46)
[2018-06-22] MEDS: AMPICILLIN 2,000 MG in SODIUM CHLORIDE 0.9% 100 ML IV SCH ×2 (09:06→16:51)
[2018-06-22] MEDS: PANTOPRAZOLE SODIUM 40 MG/VIAL IV SCH (09:08)
[2018-06-22] MEDS: POTASSIUM CHLORIDE 20MEQ/PACKET PO SCH (09:08)
[2018-06-23] VITALS (32 sets, daily range): BP systolic 96–158; BP diastolic 47–78
[2018-06-23] MEDS: AMPICILLIN 2,000 MG in SODIUM CHLORIDE 0.9% 100 ML IV SCH ×2 (00:30→08:59)
[2018-06-23] MEDS: IPRATROPIUM/ALBUTEROL 0.5-3(2.5)MG/3ML NEB HHN SCH ×4 (02:04→20:50)
[2018-06-23 05:32] LABS: BASOPHILS % 1.1 % (0.0-2.0); EOSINOPHILS % 1.9 % (0.0-5.0); HEMATOCRIT. 30.4 % (36.0-48.0); HEMOGLOBIN. 9.7 g/dL (12.0-16.0); LYMPHOCYTES % 14.9 % (20.0-50.0); MEAN CORPUSCULAR HEMOGLOBIN 29.2 pg (28.0-32.0); MEAN CORPUSCULAR VOLUME 91.4 fL (81.0-99.0); MONOCYTES % 6.4 % (2.0-8.0); NEUTROPHILS % 75.7 % (40.0-76.0); PLATELET 622 x1000/uL (130-400); RED BLOOD CELL COUNT 3.33 mill/uL (4.2-5.4); RED CELL DISTRIBUTION WIDTH 19.5 % (11.6-14.6)
[2018-06-23 06:17] LABS: CHLORIDE 105 mEq/L (98-107)
[2018-06-23] MEDS: LEVOTHYROXINE SODIUM 50MCG TABLET PO SCH (06:29)
[2018-06-23] MEDS: PANTOPRAZOLE SODIUM 40 MG/VIAL IV SCH (08:58)
[2018-06-23] MEDS: MEROPENEM 1000MG in NORMAL SALINE 100ML IV SCH ×2 (08:59→20:16)
[2018-06-23 09:07] LABS: BG BASE EXCESS 4.5 mmol/L (-2.0-2.0); BG CARBOXYHEMOGLOBIN 0.3 % (0.5-1.5); BG DEOXYHEMOGLOBIN 1.6 % (0.0-5.0); BG FRACTION INSPIRED OXYGEN 35; BG HCO3 ACT 29.1 mmol/L (22.0-26.0); BG METHEMOGLOBIN 0.2 % (0.0-1.5); BG OXYGEN SATURATION 98.4 % (92.0-98.5); BG OXYHEMOGLOBIN 97.9 % (94.0-97.0); BG PCO2 43.2 mmHg (35.0-45.0); BG PH 7.446 (7.350-7.450); BG PO2 129.8 mmHg (75.0-100.0); BG PRESSURE SUPPORT 12; BG SAMPLE SITE RIGHT RADIAL; BG TIDAL VOLUME(mL) 450 mL; BG TOTAL HEMOGLOBIN 10.4 g/dL (12.0-18.0); BG VENT MODE VENT - SIMV; BG VENT RATE 6 set
[2018-06-23 12:07] LABS: T4 FREE 0.59 ng/dL (0.76-1.46)
[2018-06-23 12:40] LABS: BG BASE EXCESS 5.6 mmol/L (-2.0-2.0); BG DEOXYHEMOGLOBIN 1.6 % (0.0-5.0); BG FRACTION INSPIRED OXYGEN 35; BG HCO3 ACT 29.4 mmol/L (22.0-26.0); BG METHEMOGLOBIN 0.3 % (0.0-1.5); BG OXYGEN SATURATION 98.4 % (92.0-98.5); BG OXYHEMOGLOBIN 98.1 % (94.0-97.0); BG PCO2 39.9 mmHg (35.0-45.0); BG PEEP (cmH2O) 0 cmH2O; BG PH 7.485 (7.350-7.450); BG PO2 121.4 mmHg (75.0-100.0); BG SAMPLE SITE RIGHT RADIAL; BG TOTAL HEMOGLOBIN 10.5 g/dL (12.0-18.0); BG VENT MODE VENT - CPAP
[2018-06-24] VITALS (24 sets, daily range): BP systolic 111–151; BP diastolic 54–79
[2018-06-24] MEDS: IPRATROPIUM/ALBUTEROL 0.5-3(2.5)MG/3ML NEB HHN SCH ×4 (02:27→20:09)
[2018-06-24 05:52] LABS: BASOPHILS % 1.5 % (0.0-2.0); EOSINOPHILS % 1.5 % (0.0-5.0); HEMATOCRIT. 31.4 % (36.0-48.0); HEMOGLOBIN. 10.1 g/dL (12.0-16.0); MEAN CORPUSCULAR HEMOGLOBIN 29.2 pg (28.0-32.0); MONOCYTES % 7.5 % (2.0-8.0); NEUTROPHILS % 74.5 % (40.0-76.0); PLATELET 633 x1000/uL (130-400); RED BLOOD CELL COUNT 3.45 mill/uL (4.2-5.4); RED CELL DISTRIBUTION WIDTH 19.5 % (11.6-14.6)
[2018-06-24] MEDS: LEVOTHYROXINE SODIUM 100MCG TABLET PO SCH (05:56)
[2018-06-24 06:04] LABS: CHLORIDE 101 mEq/L (98-107)
[2018-06-24] MEDS: MEROPENEM 1000MG in NORMAL SALINE 100ML IV SCH ×2 (08:32→20:02)
[2018-06-24] MEDS: PANTOPRAZOLE SODIUM 40 MG/VIAL IV SCH (08:32)
[2018-06-24 11:23] LABS: BG BASE EXCESS 5.5 mmol/L (-2.0-2.0); BG CARBOXYHEMOGLOBIN 0.3 % (0.5-1.5); BG DEOXYHEMOGLOBIN 1.1 % (0.0-5.0); BG HCO3 ACT 29.4 mmol/L (22.0-26.0); BG METHEMOGLOBIN 0.3 % (0.0-1.5); BG OXYGEN SATURATION 98.9 % (92.0-98.5); BG OXYHEMOGLOBIN 98.3 % (94.0-97.0); BG PCO2 40.3 mmHg (35.0-45.0); BG PH 7.481 (7.350-7.450); BG PO2 168.3 mmHg (75.0-100.0); BG SAMPLE SITE RIGHT RADIAL; BG VENT MODE T-TUBE
[2018-06-24] MEDS: ACETYLCYSTEINE 100MG/ML 10% VIAL 4ML INH SCH (20:09)
[2018-06-25] VITALS (25 sets, daily range): BP systolic 100–160; BP diastolic 38–114
[2018-06-25] MEDS: IPRATROPIUM/ALBUTEROL 0.5-3(2.5)MG/3ML NEB HHN SCH ×4 (01:27→20:08)
[2018-06-25] MEDS: LEVOTHYROXINE SODIUM 100MCG TABLET PO SCH (06:13)
[2018-06-25] MEDS: ACETYLCYSTEINE 100MG/ML 10% VIAL 4ML INH SCH ×2 (08:30→20:19)
[2018-06-25] MEDS: PANTOPRAZOLE SODIUM 40 MG/VIAL IV SCH (09:21)
[2018-06-25] MEDS: DEXTROSE 5% WATER 1,000 ML IV SCH (18:36)
[2018-06-26] VITALS (24 sets, daily range): BP systolic 120–161; BP diastolic 61–84
[2018-06-26] MEDS: IPRATROPIUM/ALBUTEROL 0.5-3(2.5)MG/3ML NEB HHN SCH ×4 (01:57→20:22)
[2018-06-26] MEDS: LEVOTHYROXINE SODIUM 100MCG TABLET PO SCH (05:42)
[2018-06-26] MEDS: ACETYLCYSTEINE 100MG/ML 10% VIAL 4ML INH SCH ×2 (07:58→20:23)
[2018-06-26] MEDS: PANTOPRAZOLE SODIUM 40 MG/VIAL IV SCH (09:02)
[2018-06-26] MEDS ORDERED: LIPASE/PROTEASE/AMYLASE 4,200/14,200/24,600 UNITS CAP DR PO NR (11:30)
[2018-06-26] MEDS: DEXTROSE 5% WATER 1,000 ML IV SCH (13:12)
[2018-06-26] MEDS ORDERED: DIATR MEGLU/DIATRIZOATE SOLN 30ML ONE (16:09)
[2018-06-26] MEDS: LACTULOSE 20G/30ML UDC PO SCH (23:17)
[2018-06-27] VITALS (24 sets, daily range): BP systolic 97–150; BP diastolic 52–95
[2018-06-27] MEDS: IPRATROPIUM/ALBUTEROL 0.5-3(2.5)MG/3ML NEB HHN SCH ×4 (01:50→21:23)
[2018-06-27 04:39] LABS: BASOPHILS % 2.1 % (0.0-2.0); EOSINOPHILS % 1.6 % (0.0-5.0); HEMATOCRIT. 31.9 % (36.0-48.0); HEMOGLOBIN. 10.3 g/dL (12.0-16.0); LYMPHOCYTES % 14.1 % (20.0-50.0); MEAN CORPUSCULAR HEMOGLOBIN 29.1 pg (28.0-32.0); MEAN CORPUSCULAR VOLUME 89.9 fL (81.0-99.0); MEAN PLATELET VOLUME 7.7 fl (7.4-10.4); MONOCYTES % 9.3 % (2.0-8.0); NEUTROPHILS % 72.9 % (40.0-76.0); PLATELET 536 x1000/uL (130-400); RED BLOOD CELL COUNT 3.55 mill/uL (4.2-5.4); RED CELL DISTRIBUTION WIDTH 19.4 % (11.6-14.6)
[2018-06-27 04:55] LABS: CHLORIDE 100 mEq/L (98-107)
[2018-06-27] MEDS: LEVOTHYROXINE SODIUM 100MCG TABLET PO SCH (05:46)
[2018-06-27] MEDS: LACTULOSE 20G/30ML UDC PO SCH ×2 (05:46→13:57)
[2018-06-27] MEDS: DEXTROSE 5% WATER 1,000 ML IV SCH (09:21)
[2018-06-27] MEDS: PANTOPRAZOLE SODIUM 40 MG/VIAL IV SCH (09:21)
[2018-06-27] MEDS: ACETYLCYSTEINE 100MG/ML 10% VIAL 4ML INH SCH (09:24)
[2018-06-27] MEDS: ENOXAPARIN 30MG/0.3ML SYR SUBCUT SCH (13:58)
[2018-06-28] VITALS (12 sets, daily range): BP systolic 128–153; BP diastolic 64–76
[2018-06-28] MEDS: IPRATROPIUM/ALBUTEROL 0.5-3(2.5)MG/3ML NEB HHN SCH ×4 (02:08→20:31)
[2018-06-28] MEDS: LEVOTHYROXINE SODIUM 100MCG TABLET PO SCH (05:29)
[2018-06-28] MEDS: DEXTROSE 5% WATER 1,000 ML IV SCH ×2 (05:29→18:32)
[2018-06-28] MEDS: PANTOPRAZOLE SODIUM 40 MG/VIAL IV SCH (09:07)
[2018-06-28] MEDS: ENOXAPARIN 30MG/0.3ML SYR SUBCUT SCH (09:07)
[2018-06-28] MEDS: DOCUSATE SODIUM 250MG CAPSULE PO SCH (10:26)
[2018-06-28] MEDS: ACETYLCYSTEINE 100MG/ML 10% VIAL 4ML INH SCH (15:46)
[2018-06-28] MEDS: LACTULOSE 20G/30ML UDC PO SCH (23:51)
[2018-06-29] VITALS (11 sets, daily range): BP systolic 85–138; BP diastolic 44–70
[2018-06-29] MEDS: LACTULOSE 20G/30ML UDC PO SCH ×2 (05:16→12:20)
[2018-06-29] MEDS: LEVOTHYROXINE SODIUM 100MCG TABLET PO SCH (08:34)
[2018-06-29] MEDS: PANTOPRAZOLE SODIUM 40 MG/VIAL IV SCH (08:34)
[2018-06-29] MEDS: DOCUSATE SODIUM 250MG CAPSULE PO SCH (08:36)
[2018-06-29] MEDS: ENOXAPARIN 30MG/0.3ML SYR SUBCUT SCH (08:43)
[2018-06-29] MEDS: ACETYLCYSTEINE 100MG/ML 10% VIAL 4ML INH SCH (09:21)
[2018-06-29] MEDS: IPRATROPIUM/ALBUTEROL 0.5-3(2.5)MG/3ML NEB HHN SCH ×2 (09:21→15:12)
== END 2018-06-29 19:05 | DRG 870 ==
LOC: ER 17:31 → EDBEDREQ 19:07 → ENRESERV 19:21 → MICUNO 20:17 → 5EST 06-27 18:00
PROVIDERS: ADMIT Internal Medicine Nephrology; ATTEND Internal Medicine Nephrology
PROC: 5A1955Z Respiratory Ventilation, Greater than 96 Consecutive Hours (ICD-10-PCS; principal; 2018-06-15)
PROC: 0BH17EZ Insertion of Endotracheal Airway into Trachea, Via Natural or Artificial Opening (ICD-10-PCS; 2018-06-15)
PROC: 30233N1 Transfusion of Nonautologous Red Blood Cells into Peripheral Vein, Percutaneous Approach (ICD-10-PCS; 2018-06-15)
PROC: 02HV33Z Insertion of Infusion Device into Superior Vena Cava, Percutaneous Approach (ICD-10-PCS; 2018-06-16)
PROC: 0D20XUZ Change Feeding Device in Upper Intestinal Tract, External Approach (ICD-10-PCS; 2018-06-26)
DX: A41.9 Sepsis, unspecified organism (principal); L89.154 Pressure ulcer of sacral region, stage 4; J96.00 Acute respiratory failure, unspecified whether with hypoxia or hypercapnia; J69.0 Pneumonitis due to inhalation of food and vomit; R65.21 Severe sepsis with septic shock; E43 Unspecified severe protein-calorie malnutrition; G92 Toxic encephalopathy; N17.9 Acute kidney failure, unspecified; N39.0 Urinary tract infection, site not specified; E87.4 Mixed disorder of acid-base balance; J44.0 Chronic obstructive pulmonary disease with (acute) lower respiratory infection; J98.11 Atelectasis; K94.23 Gastrostomy malfunction; L97.909 Non-pressure chronic ulcer of unspecified part of unspecified lower leg with unspecified severity; T17.890A Other foreign object in other parts of respiratory tract causing asphyxiation, initial encounter; I69.354 Hemiplegia and hemiparesis following cerebral infarction affecting left non-dominant side; Y95 Nosocomial condition; Z16.12 Extended spectrum beta lactamase (ESBL) resistance; D64.9 Anemia, unspecified; E03.9 Hypothyroidism, unspecified; I10 Essential (primary) hypertension; X58.XXXA Exposure to other specified factors, initial encounter; B96.20 Unspecified Escherichia coli [E. coli] as the cause of diseases classified elsewhere; B96.89 Other specified bacterial agents as the cause of diseases classified elsewhere; B95.2 Enterococcus as the cause of diseases classified elsewhere; L89.220 Pressure ulcer of left hip, unstageable; I11.9 Hypertensive heart disease without heart failure; I69.322 Dysarthria following cerebral infarction; Y93.89 Activity, other specified; Y92.89 Other specified places as the place of occurrence of the external cause; Y99.8 Other external cause status; Z22.322 Carrier or suspected carrier of Methicillin resistant Staphylococcus aureus; Z85.819 Personal history of malignant neoplasm of unspecified site of lip, oral cavity, and pharynx; Z85.850 Personal history of malignant neoplasm of thyroid; Z95.0 Presence of cardiac pacemaker; Z79.82 Long term (current) use of aspirin; Z68.24 Body mass index [BMI] 24.0-24.9, adult; Y83.8 Other surgical procedures as the cause of abnormal reaction of the patient, or of later complication, without mention of misadventure at the time of the procedure; Y82.8 Other medical devices associated with adverse incidents; Y92.238 Other place in hospital as the place of occurrence of the external cause
CPT/HCPCS: 36415; 36569; 36600; 71045; 74018; 76937; 80048; 80202; 82270; 82375; 82550; 82553; 82805; 83605; 83735; 84100; 84134; 84439; 84443; 84478; 84481; 84484; 86850; 86900; 86920; 87077; 87186; 93005; 93970; 94002; 94003; 94640; 96365; 96367; 96375; 97162; 99291; A6261; C1725; C9113; J0290; J0330; J1265; J1650; J2185; J2250; J2543; J2704; J3370; J3490; J7030; J7040; J7050; J7060; J7070; J7608; J7620; P9016; Q9963; A4315

== ENCOUNTER 2018-08-02 01:59 | Inpatient (IN) | payer MEDICARE, MEDICAID ==
[~2018-08-02] VITALS: Ht 152.4 cm; Wt 65.3 kg
[2018-08-02] MEDS ORDERED: SODIUM CHLORIDE 0.9% 1,000 ML IV ONE (02:23)
[2018-08-02] MEDS ORDERED: VANCOMYCIN 1 G PREMIX 200 ML IV ONE (02:30)
[2018-08-02] MEDS ORDERED: PIPERACILLIN/TAZ 3.375G PREMIX 50 ML IV ONE (02:30)
[2018-08-02 03:03] LABS: BASOPHILS % 0.9 % (0.0-2.0); EOSINOPHILS % 1.5 % (0.0-5.0); HEMATOCRIT. 24.1 % (36.0-48.0); HEMOGLOBIN. 7.7 g/dL (12.0-16.0); MEAN CORPUSCULAR HEMOGLOBIN 27.9 pg (28.0-32.0); MEAN CORPUSCULAR VOLUME 87.5 fL (81.0-99.0); MEAN PLATELET VOLUME 7.5 fl (7.4-10.4); MONOCYTES % 6.9 % (2.0-8.0); NEUTROPHILS % 78.7 % (40.0-76.0); PLATELET 366 x1000/uL (130-400); RED BLOOD CELL COUNT 2.76 mill/uL (4.2-5.4); RED CELL DISTRIBUTION WIDTH 16.8 % (11.6-14.6)
[2018-08-02 03:07] LABS: CHLORIDE 99 mEq/L (98-107)
[2018-08-02 03:09] LABS: INR 1.2; PARTIAL THROMBOPLASTIN TIME 33.1 sec (23.4-31.0); PROTHROMBIN TIME 11.9 sec (9.6-11.0)
[2018-08-02 05:33] LABS: CLARITY URINE TURBID (CLEAR); COLOR URINE YELLOW (YELLOW); KETONES URINE NEGATIVE (NEGATIVE); LEUKOCYTE ESTERASE URINE 3+ (NEGATIVE); NITRITE URINE POSITIVE (NEGATIVE); OCCULT BLOOD URINE 2+ (NEGATIVE); PH URINE 7.5 (4.5-8.0); PROTEIN URINE 1+ (NEGATIVE); SPECIFIC GRAVITY URINE 1.013 (1.005-1.030)
[2018-08-02] MEDS ORDERED: ONDANSETRON HCL 4MG/2ML INJ IV PRN (07:30)
[2018-08-02] MEDS ORDERED: GUAIFENESIN 200MG/10ML SUGAR FREE UDC PO PRN (07:30)
[2018-08-02] MEDS ORDERED: ACETAMINOPHEN 650MG SUPP PR PRN (07:30)
[2018-08-02] MEDS ORDERED: IPRATROPIUM/ALBUTEROL 0.5-3(2.5)MG/3ML NEB INH PRN (07:30)
[2018-08-02 07:41] LABS: T4 FREE 0.83 ng/dL (0.76-1.46)
[2018-08-02 08:12] LABS: VITAMIN B12 SERUM 1023 pg/mL (211-911)
[2018-08-02 08:16] LABS: FOLIC ACID (FOLATE) SERUM > 20.00 ng/mL (>5.38)
[2018-08-02 12:00] VITALS: BP 117/46
[2018-08-02] MEDS: DEXT 5%/LACTATED RINGERS 1,000 ML IV SCH (12:11)
[2018-08-02] MEDS: PANTOPRAZOLE SODIUM 40 MG/VIAL IV SCH (12:22)
[2018-08-02] MEDS: ENOXAPARIN 30MG/0.3ML SYR SUBCUT SCH (12:23)
[2018-08-02] MEDS ORDERED: MAGNESIUM 4 G PREMIX 100 ML IV ONE (13:15)
[2018-08-02 14:48] VITALS: BP 92/42
[2018-08-02] MEDS: MEROPENEM 1,000 MG in SODIUM CHLORIDE 0.9% 100 ML IV SCH (14:59)
[2018-08-02 16:42] VITALS: BP 112/45
[2018-08-02 19:31] LABS: HEMATOCRIT 24.7 % (36.0-48.0); HEMOGLOBIN 7.8 g/dL (12.0-16.0)
[2018-08-02 20:00] VITALS: BP 125/59
[2018-08-02] MEDS: VANCOMYCIN 750 MG PREMIX 150 ML IV SCH (22:24)
[2018-08-03] VITALS: BP 126/53
[2018-08-03] MEDS: MEROPENEM 1,000 MG in SODIUM CHLORIDE 0.9% 100 ML IV SCH ×2 (00:53→12:21)
[2018-08-03] MEDS: DEXT 5%/LACTATED RINGERS 1,000 ML IV SCH ×3 (01:21→21:33)
[2018-08-03 02:24] LABS: HEMATOCRIT 24.9 % (36.0-48.0); HEMOGLOBIN 7.9 g/dL (12.0-16.0)
[2018-08-03] MEDS ORDERED: CLON0.1T MT (03:10)
[2018-08-03] MEDS ORDERED: ASCO500C15 PO (03:10)
[2018-08-03] MEDS ORDERED: DOCU250C69 PO (03:10)
[2018-08-03] MEDS ORDERED: PROT20 MT (03:10)
[2018-08-03] MEDS ORDERED: IPRA3AMP31 NEB (03:10)
[2018-08-03] MEDS ORDERED: ACET600C5 PO (03:10)
[2018-08-03] MEDS ORDERED: MULT-1116 PO (03:10)
[2018-08-03] MEDS ORDERED: OR220 MT (03:10)
[2018-08-03] MEDS ORDERED: LACT10SO7 PO (03:10)
[2018-08-03] MEDS ORDERED: LEVO150T8 MT (03:10)
[2018-08-03 04:00] VITALS: BP 160/69
[2018-08-03 08:00] VITALS: BP 146/60
[2018-08-03] MEDS: PANTOPRAZOLE SODIUM 40 MG/VIAL IV SCH (09:30)
[2018-08-03 10:22] LABS: HEMATOCRIT 27.5 % (36.0-48.0); HEMOGLOBIN 8.7 g/dL (12.0-16.0)
[2018-08-03 12:00] VITALS: BP 146/83
[2018-08-03] MEDS: ENOXAPARIN 30MG/0.3ML SYR SUBCUT SCH (12:21)
[2018-08-03 16:00] VITALS: BP 132/42
[2018-08-03] MEDS: VANCOMYCIN 750 MG PREMIX 150 ML IV SCH (18:06)
[2018-08-03 20:00] VITALS: BP 120/52
[2018-08-04] VITALS: BP 131/60
[2018-08-04 04:00] VITALS: BP 131/69
[2018-08-04] MEDS: MEROPENEM 1,000 MG in SODIUM CHLORIDE 0.9% 100 ML IV SCH ×2 (06:12→18:33)
[2018-08-04 07:34] LABS: CHLORIDE 103 mEq/L (98-107)
[2018-08-04 08:00] VITALS: BP 111/66
[2018-08-04] MEDS: VANCOMYCIN 750 MG PREMIX 150 ML IV SCH (09:16)
[2018-08-04] MEDS: PANTOPRAZOLE SODIUM 40 MG/VIAL IV SCH (09:16)
[2018-08-04] MEDS: SODIUM HYPOCHLORITE 0.125% 473ML SOLUTION TOP SCH (09:21)
[2018-08-04] MEDS ORDERED: LIDOCAINE HCL 2%/EPINEPHRINE 1:100,000 20 ML VIAL INFIL NR (11:15)
[2018-08-04 12:00] VITALS: BP 123/56
[2018-08-04] MEDS ORDERED: SODIUM HYPOCHLORITE 0.125% 473ML SOLUTION TOP SCH (13:00)
[2018-08-04] MEDS: DEXT 5%/LACTATED RINGERS 1,000 ML IV SCH (13:14)
[2018-08-04] MEDS: ENOXAPARIN 30MG/0.3ML SYR SUBCUT SCH (13:15)
[2018-08-04 16:00] VITALS: BP 120/55
[2018-08-04 20:00] VITALS: BP 129/61
[2018-08-05] VITALS: BP 146/68
[2018-08-05] MEDS: DEXT 5%/LACTATED RINGERS 1,000 ML IV SCH ×2 (00:45→16:18)
[2018-08-05] MEDS ORDERED: VANCOMYCIN 1 G PREMIX 200 ML IV SCH (03:00)
[2018-08-05 04:00] VITALS: BP 111/49
[2018-08-05] MEDS: MEROPENEM 1,000 MG in SODIUM CHLORIDE 0.9% 100 ML IV SCH ×2 (05:15→17:42)
[2018-08-05 08:00] VITALS: BP 155/59
[2018-08-05] MEDS: PANTOPRAZOLE SODIUM 40 MG/VIAL IV SCH (08:55)
[2018-08-05] MEDS: SODIUM HYPOCHLORITE 0.125% 473ML SOLUTION TOP SCH (08:55)
[2018-08-05] MEDS ORDERED: LIDOCAINE HCL/EPINEPHRINE 1%-EPI 1:100,000 20 ML VIAL INFIL NR (11:15)
[2018-08-05 12:00] VITALS: BP 122/48
[2018-08-05 13:02] LABS: BASOPHILS % 0.8 % (0.0-2.0); EOSINOPHILS % 1.5 % (0.0-5.0); HEMATOCRIT. 23.8 % (36.0-48.0); HEMOGLOBIN. 7.7 g/dL (12.0-16.0); LYMPHOCYTES % 13.4 % (20.0-50.0); MEAN CORPUSCULAR HEMOGLOBIN 28.3 pg (28.0-32.0); MEAN CORPUSCULAR VOLUME 87.6 fL (81.0-99.0); MEAN PLATELET VOLUME 7.2 fl (7.4-10.4); MONOCYTES % 8.1 % (2.0-8.0); NEUTROPHILS % 76.2 % (40.0-76.0); PLATELET 350 x1000/uL (130-400); RED BLOOD CELL COUNT 2.72 mill/uL (4.2-5.4); RED CELL DISTRIBUTION WIDTH 16.4 % (11.6-14.6)
[2018-08-05] MEDS: ENOXAPARIN 30MG/0.3ML SYR SUBCUT SCH (13:21)
[2018-08-05 16:00] VITALS: BP 118/67
[2018-08-05 20:00] VITALS: BP 137/67
[2018-08-06] VITALS (7 sets, daily range): BP systolic 133–172; BP diastolic 61–86
[2018-08-06] MEDS: DEXT 5%/LACTATED RINGERS 1,000 ML IV SCH (03:06)
[2018-08-06] MEDS: MEROPENEM 1,000 MG in SODIUM CHLORIDE 0.9% 100 ML IV SCH ×2 (05:07→18:31)
[2018-08-06] MEDS: PANTOPRAZOLE SODIUM 40 MG/VIAL IV SCH (08:28)
[2018-08-06] MEDS ORDERED: MULTIVITAMINS,THER W-MINERALS TABLET PO SCH (09:00)
[2018-08-06] MEDS ORDERED: ZINC SULFATE 220 MG ( 50 ) CAPSULE PO SCH (09:00)
[2018-08-06] MEDS ORDERED: ASCORBIC ACID 500 MG TABLET PO SCH (09:00)
[2018-08-06] MEDS: ENOXAPARIN 30MG/0.3ML SYR SUBCUT SCH (12:39)
[2018-08-06] MEDS: SODIUM HYPOCHLORITE 0.125% 473ML SOLUTION TOP SCH (12:39)
== END 2018-08-06 20:12 | DRG 981 ==
LOC: ER 01:59 → 5WST 06:24 → EDBEDREQTM 06:29 → EDBEDREQ 06:29 → ENRESERV 07:09 → SUPCPDRO 07:16
PROVIDERS: ADMIT Internal Medicine; ATTEND Internal Medicine
PROC: 0DH63UZ Insertion of Feeding Device into Stomach, Percutaneous Approach (ICD-10-PCS; 2018-08-02)
PROC: 0KBP0ZZ Excision of Left Hip Muscle, Open Approach (ICD-10-PCS; principal; 2018-08-05)
PROC: 0KBN0ZZ Excision of Right Hip Muscle, Open Approach (ICD-10-PCS; 2018-08-05)
DX: K94.29 Other complications of gastrostomy (principal); A41.9 Sepsis, unspecified organism; L89.223 Pressure ulcer of left hip, stage 3; G92 Toxic encephalopathy; E43 Unspecified severe protein-calorie malnutrition; L89.154 Pressure ulcer of sacral region, stage 4; N39.0 Urinary tract infection, site not specified; I69.354 Hemiplegia and hemiparesis following cerebral infarction affecting left non-dominant side; K94.22 Gastrostomy infection; D63.8 Anemia in other chronic diseases classified elsewhere; E03.9 Hypothyroidism, unspecified; F03.90 Unspecified dementia, unspecified severity, without behavioral disturbance, psychotic disturbance, mood disturbance, and anxiety; I10 Essential (primary) hypertension; I49.5 Sick sinus syndrome; L81.6 Other disorders of diminished melanin formation; Y83.8 Other surgical procedures as the cause of abnormal reaction of the patient, or of later complication, without mention of misadventure at the time of the procedure; Y73.8 Miscellaneous gastroenterology and urology devices associated with adverse incidents, not elsewhere classified; Z85.21 Personal history of malignant neoplasm of larynx; Z85.819 Personal history of malignant neoplasm of unspecified site of lip, oral cavity, and pharynx; Z85.850 Personal history of malignant neoplasm of thyroid; Z95.0 Presence of cardiac pacemaker; Z98.61 Coronary angioplasty status; Z68.28 Body mass index [BMI] 28.0-28.9, adult
CPT/HCPCS: 36415; 71045; 80048; 80061; 80202; 82607; 82746; 83036; 83540; 83550; 83605; 83880; 84134; 84145; 84439; 84443; 84484; 85014; 85018; 87070; 87077; 87186; 93005; 93970; 96365; 96367; 96375; 99285; C9113; J1650; J2185; J2543; J3370; J3490; J7030; J7050

== ENCOUNTER 2018-12-27 17:12 | Inpatient (IN) | payer MEDICARE, MEDICAID ==
[~2018-12-27] VITALS: Ht 160 cm; Wt 64.9 kg
[~2018-12-27 17:12] MED LIST changes: +ACET600C5 PO; -AMLO5TAB88; +ASCO500C15 PO; -ASPI-1158; +CLON0.1T MT; +DOCU250C69 PO; -ETOMIDATE 2MG/ML 10ML VIAL IV ONE; +IPRA3AMP31 NEB; +LACT10SO7 PO; +LEVO150T8 MT; -LEVO50TA52 PO; +MULT-1116 PO; +OR220 MT; +PROT20 MT; -SUCCINYLCHOLINE CHLORIDE 200MG/10ML IV ONE
[2018-12-27] MEDS ORDERED: ACETAMINOPHEN 650MG/20.3ML UDC PO ONE (17:45)
[2018-12-27] MEDS ORDERED: PIPERACILLIN/TAZ 3.375G PREMIX 50 ML IV ONE (17:45)
[2018-12-27] MEDS ORDERED: VANCOMYCIN 1 G PREMIX 200 ML IV ONE (17:45)
[2018-12-27] MEDS ORDERED: AZITHROMYCIN 500 MG in DEXT 5% WATER 250 ML IV ONE (17:45)
[2018-12-27] MEDS ORDERED: SODIUM CHLORIDE 0.9% 1000ML BAG (SEPSIS BOLUS) IV ONE (17:45)
[2018-12-27 17:59] LABS: HEMATOCRIT. 33.2 % (36.0-48.0); HEMOGLOBIN. 10.8 g/dL (12.0-16.0); MEAN CORPUSCULAR HEMOGLOBIN 29.8 pg (28.0-32.0); MEAN PLATELET VOLUME 9.3 fl (7.4-10.4); PLATELET 223 x1000/uL (130-400); RED BLOOD CELL COUNT 3.61 mill/uL (4.2-5.4)
[2018-12-27 18:14] LABS: INR 1.1; PROTHROMBIN TIME 11.4 sec (9.6-11.0)
[2018-12-27 18:16] LABS: CHLORIDE 95 mEq/L (98-107)
[2018-12-27] MEDS ORDERED: SODIUM CHLORIDE 0.9% 500 ML IV ONE ×2 (19:45→21:00)
[2018-12-27 20:20] LABS: PLATELET ESTIMATE NORMAL
[2018-12-27 21:43] LABS: CLARITY URINE CLOUDY (CLEAR); COLOR URINE YELLOW (YELLOW); KETONES URINE NEGATIVE (NEGATIVE); LEUKOCYTE ESTERASE URINE 3+ (NEGATIVE); NITRITE URINE POSITIVE (NEGATIVE); OCCULT BLOOD URINE TRACE (NEGATIVE); PH URINE >=9.0 (4.5-8.0); PROTEIN URINE NEGATIVE (NEGATIVE); SPECIFIC GRAVITY URINE 1.003 (1.005-1.030); UROBILINOGEN URINE 0.2 E.U./dL (0.2-1.0)
[2018-12-27] MEDS ORDERED: NOREPINEPHRINE 4MG/250ML PMX 250 ML IV SCH (23:15)
[2018-12-27] MEDS ORDERED: NOREPINEPHRINE 4 MG in DEXT 5% WATER 246 ML IV ONE (23:15)
[2018-12-28] VITALS (81 sets, daily range): BP systolic 82–143; BP diastolic 41–81
[2018-12-28] MEDS ORDERED: NOREPINEPHRINE 4MG/250ML PMX 250 ML IV ONE (02:00)
[2018-12-28 03:29] LABS: BG BASE EXCESS 3.1 mmol/L (-2.0-2.0); BG CARBOXYHEMOGLOBIN 0.3 % (0.5-1.5); BG DEOXYHEMOGLOBIN 6.4 % (0.0-5.0); BG FRACTION INSPIRED OXYGEN 44; BG HCO3 ACT 26.7 mmol/L (22.0-26.0); BG METHEMOGLOBIN 0.4 % (0.0-1.5); BG OXYGEN SATURATION 93.6 % (92.0-98.5); BG OXYHEMOGLOBIN 92.9 % (94.0-97.0); BG PCO2 36.8 mmHg (35.0-45.0); BG PH 7.478 (7.350-7.450); BG PO2 68.7 mmHg (75.0-100.0); BG SAMPLE SITE LEFT BRACHIAL; BG TOTAL HEMOGLOBIN 11.2 g/dL (12.0-18.0); BG VENT MODE T-TUBE
[2018-12-28] MEDS: SODIUM CHLORIDE 0.9% 1,000 ML IV SCH (04:55)
[2018-12-28] MEDS ORDERED: FAMO20TA8 GT (05:34)
[2018-12-28] MEDS ORDERED: ENOX40DI8 SQ (05:34)
[2018-12-28] MEDS ORDERED: AMLO5TAB88 GT (05:34)
[2018-12-28] MEDS ORDERED: FOLI-43 GT (05:34)
[2018-12-28 05:50] LABS: HEMATOCRIT. 26.9 % (36.0-48.0); HEMOGLOBIN. 8.8 g/dL (12.0-16.0); MEAN CORPUSCULAR HEMOGLOBIN 29.9 pg (28.0-32.0); MEAN CORPUSCULAR VOLUME 91.7 fL (81.0-99.0); MEAN PLATELET VOLUME 9.2 fl (7.4-10.4); PLATELET 194 x1000/uL (130-400); RED BLOOD CELL COUNT 2.94 mill/uL (4.2-5.4); RED CELL DISTRIBUTION WIDTH 19.6 % (11.6-14.6)
[2018-12-28] MEDS: NOREPINEPHRINE 16 MG in DEXT 5% WATER 234 ML IV PRN (06:41)
[2018-12-28] MEDS: PANTOPRAZOLE SODIUM 40 MG/VIAL IV SCH (09:00)
[2018-12-28 09:31] LABS: BG BASE EXCESS 2.6 mmol/L (-2.0-2.0); BG DEOXYHEMOGLOBIN 2.9 % (0.0-5.0); BG FRACTION INSPIRED OXYGEN 40; BG HCO3 ACT 25.4 mmol/L (22.0-26.0); BG METHEMOGLOBIN 0.3 % (0.0-1.5); BG OXYGEN SATURATION 97.1 % (92.0-98.5); BG OXYHEMOGLOBIN 96.8 % (94.0-97.0); BG PCO2 32.3 mmHg (35.0-45.0); BG PH 7.514 (7.350-7.450); BG PO2 90.3 mmHg (75.0-100.0); BG SAMPLE SITE RIGHT RADIAL; BG TOTAL HEMOGLOBIN 9.2 g/dL (12.0-18.0); BG VENT MODE MASK - AEROSOL
[2018-12-28] MEDS ORDERED: METOCLOPRAMIDE HCL 10MG/2ML VIAL IV PRN (09:45)
[2018-12-28] MEDS ORDERED: LEVOFLOXACIN 500MG PREMIX 100 ML IV SCH (11:00)
[2018-12-28] MEDS: METRONIDAZOLE 500 MG PREMIX 100 ML IV SCH ×2 (12:00→20:37)
[2018-12-28 14:56] LABS: PLATELET ESTIMATE NORMAL
[2018-12-28] MEDS: IPRATROPIUM BROMIDE (0.02%) 0.5MG/2.5ML NEB HHN SCH ×2 (15:40→20:17)
[2018-12-28] MEDS: ACETYLCYSTEINE 100MG/ML 10% VIAL 4ML INH SCH (16:00)
[2018-12-29] VITALS (109 sets, daily range): BP systolic 63–133; BP diastolic 36–71
[2018-12-29] MEDS: ACETYLCYSTEINE 100MG/ML 10% VIAL 4ML INH SCH ×3 (00:20→15:53)
[2018-12-29] MEDS: IPRATROPIUM BROMIDE (0.02%) 0.5MG/2.5ML NEB HHN SCH ×6 (00:21→20:39)
[2018-12-29] MEDS: SODIUM CHLORIDE 0.9% 1,000 ML IV SCH ×2 (01:35→20:38)
[2018-12-29] MEDS: METRONIDAZOLE 500 MG PREMIX 100 ML IV SCH ×3 (03:33→20:37)
[2018-12-29 06:15] LABS: HEMATOCRIT. 24.3 % (36.0-48.0); HEMOGLOBIN. 8.1 g/dL (12.0-16.0); MEAN CORPUSCULAR HEMOGLOBIN 30.5 pg (28.0-32.0); MEAN CORPUSCULAR VOLUME 91.5 fL (81.0-99.0); MEAN PLATELET VOLUME 8.8 fl (7.4-10.4); PLATELET 178 x1000/uL (130-400); RED BLOOD CELL COUNT 2.65 mill/uL (4.2-5.4); RED CELL DISTRIBUTION WIDTH 19.5 % (11.6-14.6)
[2018-12-29 06:24] LABS: CHLORIDE 107 mEq/L (98-107)
[2018-12-29 08:33] LABS: BG BASE EXCESS 2.3 mmol/L (-2.0-2.0); BG CARBOXYHEMOGLOBIN 0.3 % (0.5-1.5); BG DEOXYHEMOGLOBIN 2.5 % (0.0-5.0); BG FRACTION INSPIRED OXYGEN 35; BG HCO3 ACT 25.6 mmol/L (22.0-26.0); BG METHEMOGLOBIN 0.2 % (0.0-1.5); BG OXYGEN SATURATION 97.5 % (92.0-98.5); BG PCO2 34.4 mmHg (35.0-45.0); BG SAMPLE SITE LEFT BRACHIAL; BG TOTAL HEMOGLOBIN 9.1 g/dL (12.0-18.0); BG VENT MODE MASK - TRACH
[2018-12-29] MEDS: PANTOPRAZOLE SODIUM 40 MG/VIAL IV SCH (08:44)
[2018-12-29] MEDS: POTASSIUM CHLORIDE 20MEQ/PACKET PEG SCH (08:44)
[2018-12-29] MEDS: NOREPINEPHRINE 16 MG in DEXT 5% WATER 234 ML IV PRN (08:45)
[2018-12-29] MEDS ORDERED: IPRATROPIUM/ALBUTEROL 0.5-3(2.5)MG/3ML NEB HHN PRN (09:00)
[2018-12-29 09:40] LABS: T4 FREE 0.39 ng/dL (0.76-1.46)
[2018-12-29 10:03] LABS: PLATELET ESTIMATE NORMAL
[2018-12-29] MEDS: METOCLOPRAMIDE HCL 10MG/2ML VIAL IV SCH ×2 (12:31→17:18)
[2018-12-29] MEDS ORDERED: CEFEPIME 2GM PREMIX 100 ML IV SCH (13:00)
[2018-12-29] MEDS: CEFEPIME 2,000 MG in DEXT 5% WATER 100 ML IV SCH (14:14)
[2018-12-30] VITALS (68 sets, daily range): BP systolic 70–132; BP diastolic 39–68
[2018-12-30] MEDS: METOCLOPRAMIDE HCL 10MG/2ML VIAL IV SCH ×3 (00:11→17:11)
[2018-12-30] MEDS: CEFEPIME 2,000 MG in DEXT 5% WATER 100 ML IV SCH ×2 (00:11→12:34)
[2018-12-30] MEDS: ACETYLCYSTEINE 100MG/ML 10% VIAL 4ML INH SCH ×3 (00:43→15:47)
[2018-12-30] MEDS: IPRATROPIUM BROMIDE (0.02%) 0.5MG/2.5ML NEB HHN SCH ×6 (00:43→20:29)
[2018-12-30] MEDS: METRONIDAZOLE 500 MG PREMIX 100 ML IV SCH ×3 (04:01→19:38)
[2018-12-30 05:44] LABS: HEMATOCRIT 22.8 % (36.0-48.0); HEMOGLOBIN 7.3 g/dL (12.0-16.0); MEAN CORPUSCULAR HEMOGLOBIN 29.5 pg (28.0-32.0); MEAN CORPUSCULAR VOLUME 92.7 fL (81.0-99.0); PLATELET 188 x1000/uL (130-400); RED BLOOD CELL COUNT 2.46 mill/uL (4.2-5.4); RED CELL DISTRIBUTION WIDTH 19.5 % (11.6-14.6)
[2018-12-30 05:51] LABS: CHLORIDE 113 mEq/L (98-107)
[2018-12-30] MEDS: POTASSIUM CHLORIDE 20MEQ/PACKET PEG SCH (08:07)
[2018-12-30] MEDS: PANTOPRAZOLE SODIUM 40 MG/VIAL IV SCH (08:07)
[2018-12-30] MEDS ORDERED: LEVOFLOXACIN 250MG PREMIX 50 ML IV SCH (11:00)
[2018-12-30] MEDS: LEVOTHYROXINE SODIUM 50MCG TABLET PO SCH (12:34)
[2018-12-30] MEDS: SODIUM CHLORIDE 0.9% 1,000 ML IV SCH (15:37)
[2018-12-30] MEDS: ACETAMINOPHEN 650MG/20.3ML UDC PO PRN (21:09)
[2018-12-31] VITALS (66 sets, daily range): BP systolic 87–140; BP diastolic 47–75
[2018-12-31] MEDS: IPRATROPIUM BROMIDE (0.02%) 0.5MG/2.5ML NEB HHN SCH ×3 (00:31→08:04)
[2018-12-31] MEDS: ACETYLCYSTEINE 100MG/ML 10% VIAL 4ML INH SCH ×3 (00:31→15:25)
[2018-12-31] MEDS: CEFEPIME 2,000 MG in DEXT 5% WATER 100 ML IV SCH ×2 (01:48→12:10)
[2018-12-31] MEDS: METOCLOPRAMIDE HCL 10MG/2ML VIAL IV SCH ×4 (01:48→17:53)
[2018-12-31] MEDS: METRONIDAZOLE 500 MG PREMIX 100 ML IV SCH ×3 (04:32→21:32)
[2018-12-31] MEDS: NOREPINEPHRINE 16 MG in DEXT 5% WATER 234 ML IV PRN (04:32)
[2018-12-31 05:41] LABS: HEMATOCRIT. 24.4 % (36.0-48.0); HEMOGLOBIN. 7.7 g/dL (12.0-16.0); MEAN CORPUSCULAR HEMOGLOBIN 29.5 pg (28.0-32.0); MEAN CORPUSCULAR VOLUME 92.9 fL (81.0-99.0); MEAN PLATELET VOLUME 8.7 fl (7.4-10.4); PLATELET 201 x1000/uL (130-400); RED BLOOD CELL COUNT 2.62 mill/uL (4.2-5.4); RED CELL DISTRIBUTION WIDTH 20.2 % (11.6-14.6)
[2018-12-31 05:45] LABS: CHLORIDE 119 mEq/L (98-107)
[2018-12-31 08:46] LABS: BG BASE EXCESS 1.4 mmol/L (-2.0-2.0); BG CARBOXYHEMOGLOBIN 0.3 % (0.5-1.5); BG DEOXYHEMOGLOBIN 1.5 % (0.0-5.0); BG FRACTION INSPIRED OXYGEN 40; BG HCO3 ACT 25.2 mmol/L (22.0-26.0); BG OXYGEN SATURATION 98.5 % (92.0-98.5); BG OXYHEMOGLOBIN 97.2 % (94.0-97.0); BG PCO2 36.5 mmHg (35.0-45.0); BG PH 7.457 (7.350-7.450); BG PO2 150.5 mmHg (75.0-100.0); BG PRESSURE SUPPORT 12; BG SAMPLE SITE LEFT RADIAL; BG TOTAL HEMOGLOBIN 9.4 g/dL (12.0-18.0); BG VENT MODE VENT - CPAP
[2018-12-31] MEDS: POTASSIUM CHLORIDE 20MEQ/PACKET PEG SCH (08:55)
[2018-12-31] MEDS: PANTOPRAZOLE SODIUM 40 MG/VIAL IV SCH (08:55)
[2018-12-31] MEDS: LEVOTHYROXINE SODIUM 50MCG TABLET PO SCH (08:55)
[2018-12-31] MEDS: MIDODRINE HCL 5MG TABLET PO SCH ×3 (10:10→17:53)
[2018-12-31] MEDS ORDERED: POTASSIUM CHLORIDE 20MEQ TABLET SR PO NR (10:30)
[2018-12-31] MEDS: SODIUM CHLORIDE 0.45% 1,000 ML IV SCH (11:35)
[2018-12-31] MEDS: IPRATROPIUM/ALBUTEROL 0.5-3(2.5)MG/3ML NEB HHN SCH ×3 (11:49→20:23)
[2018-12-31 13:07] LABS: PLATELET ESTIMATE NORMAL
[2018-12-31] MEDS ORDERED: VANCOMYCIN 1 G PREMIX 200 ML IV SCH (14:00)
[2019-01-01] VITALS (13 sets, daily range): BP systolic 89–123; BP diastolic 50–69
[2019-01-01] MEDS: IPRATROPIUM/ALBUTEROL 0.5-3(2.5)MG/3ML NEB HHN SCH ×7 (00:03→23:58)
[2019-01-01] MEDS: ACETYLCYSTEINE 100MG/ML 10% VIAL 4ML INH SCH ×3 (00:04→16:20)
[2019-01-01] MEDS: CEFEPIME 2,000 MG in DEXT 5% WATER 100 ML IV SCH ×2 (00:56→12:46)
[2019-01-01] MEDS: SODIUM CHLORIDE 0.45% 1,000 ML IV SCH ×2 (00:56→17:37)
[2019-01-01] MEDS: METOCLOPRAMIDE HCL 10MG/2ML VIAL IV SCH ×4 (00:56→17:28)
[2019-01-01] MEDS ORDERED: VANCOMYCIN 500 MG PREMIX 100 ML IV SCH (02:00)
[2019-01-01] MEDS: METRONIDAZOLE 500 MG PREMIX 100 ML IV SCH ×3 (04:16→22:14)
[2019-01-01 07:40] LABS: HEMATOCRIT. 22.3 % (36.0-48.0); HEMOGLOBIN. 7.1 g/dL (12.0-16.0); MEAN CORPUSCULAR HEMOGLOBIN 29.4 pg (28.0-32.0); MEAN CORPUSCULAR VOLUME 91.7 fL (81.0-99.0); MEAN PLATELET VOLUME 8.9 fl (7.4-10.4); PLATELET 202 x1000/uL (130-400); RED BLOOD CELL COUNT 2.44 mill/uL (4.2-5.4); RED CELL DISTRIBUTION WIDTH 20.1 % (11.6-14.6)
[2019-01-01 07:59] LABS: CHLORIDE 120 mEq/L (98-107)
[2019-01-01] MEDS: POTASSIUM CHLORIDE 20MEQ/PACKET PEG SCH (08:32)
[2019-01-01] MEDS: PANTOPRAZOLE SODIUM 40 MG/VIAL IV SCH (08:32)
[2019-01-01] MEDS: MIDODRINE HCL 5MG TABLET PO SCH ×3 (08:32→17:29)
[2019-01-01] MEDS: LEVOTHYROXINE SODIUM 50MCG TABLET PO SCH (08:32)
[2019-01-01] MEDS ORDERED: VANCOMYCIN HCL 1 GM/VIAL PO SCH (12:00)
[2019-01-01 12:29] LABS: PLATELET ESTIMATE NORMAL
[2019-01-01] MEDS: VANCOMYCIN HCL 1000 MG/20 ML ORAL PO SCH ×2 (12:54→17:28)
[2019-01-01] MEDS: VANCOMYCIN 500 MG PREMIX 100 ML IV SCH (17:28)
[2019-01-01 18:06] LABS: TOTAL IRON BINDING CAPACITY 265 ug/dL (250-450)
[2019-01-02] VITALS (11 sets, daily range): BP systolic 89–124; BP diastolic 50–69
[2019-01-02] MEDS: ACETYLCYSTEINE 100MG/ML 10% VIAL 4ML INH SCH ×2 (00:01→08:43)
[2019-01-02] MEDS: CEFEPIME 2,000 MG in DEXT 5% WATER 100 ML IV SCH ×2 (00:24→12:46)
[2019-01-02] MEDS: VANCOMYCIN HCL 1000 MG/20 ML ORAL PO SCH ×4 (00:24→17:21)
[2019-01-02] MEDS: METOCLOPRAMIDE HCL 10MG/2ML VIAL IV SCH ×4 (00:24→17:21)
[2019-01-02] MEDS: IPRATROPIUM/ALBUTEROL 0.5-3(2.5)MG/3ML NEB HHN SCH ×5 (04:08→20:45)
[2019-01-02] MEDS: METRONIDAZOLE 500 MG PREMIX 100 ML IV SCH ×3 (04:21→20:39)
[2019-01-02] MEDS: VANCOMYCIN 500 MG PREMIX 100 ML IV SCH (05:07)
[2019-01-02 07:25] LABS: CHLORIDE 118 mEq/L (98-107)
[2019-01-02 07:30] LABS: HEMATOCRIT. 22.7 % (36.0-48.0); HEMOGLOBIN. 7.2 g/dL (12.0-16.0); MEAN CORPUSCULAR HEMOGLOBIN 29.6 pg (28.0-32.0); MEAN CORPUSCULAR VOLUME 93.7 fL (81.0-99.0); MEAN PLATELET VOLUME 8.9 fl (7.4-10.4); PLATELET 237 x1000/uL (130-400); RED BLOOD CELL COUNT 2.43 mill/uL (4.2-5.4); RED CELL DISTRIBUTION WIDTH 20.5 % (11.6-14.6)
[2019-01-02] MEDS: MIDODRINE HCL 5MG TABLET PO SCH ×3 (09:27→17:21)
[2019-01-02] MEDS: POTASSIUM CHLORIDE 20MEQ/PACKET PEG SCH (09:27)
[2019-01-02] MEDS: PANTOPRAZOLE SODIUM 40 MG/VIAL IV SCH (09:27)
[2019-01-02] MEDS: LEVOTHYROXINE SODIUM 50MCG TABLET PO SCH (09:28)
[2019-01-02 10:00] LABS: PLATELET ESTIMATE NORMAL
[2019-01-02] MEDS: SODIUM CHLORIDE 0.45% 1,000 ML IV SCH (12:46)
[2019-01-02] MEDS ORDERED: VANCOMYCIN 500 MG PREMIX 100 ML IV SCH (20:00)
[2019-01-02] MEDS: VANCOMYCIN 750 MG PREMIX 150 ML IV SCH (23:36)
[2019-01-03] VITALS (17 sets, daily range): BP systolic 93–124; BP diastolic 49–64
[2019-01-03] MEDS: IPRATROPIUM/ALBUTEROL 0.5-3(2.5)MG/3ML NEB HHN SCH ×6 (00:57→21:10)
[2019-01-03] MEDS: ACETYLCYSTEINE 100MG/ML 10% VIAL 4ML INH SCH (00:58)
[2019-01-03] MEDS: METOCLOPRAMIDE HCL 10MG/2ML VIAL IV SCH ×3 (01:52→18:15)
[2019-01-03] MEDS: CEFEPIME 2,000 MG in DEXT 5% WATER 100 ML IV SCH ×2 (01:55→13:16)
[2019-01-03 07:19] LABS: CHLORIDE 114 mEq/L (98-107)
[2019-01-03 07:22] LABS: HEMATOCRIT. 23.8 % (36.0-48.0); HEMOGLOBIN. 7.6 g/dL (12.0-16.0); MEAN CORPUSCULAR HEMOGLOBIN 29.4 pg (28.0-32.0); MEAN CORPUSCULAR VOLUME 92.6 fL (81.0-99.0); MEAN PLATELET VOLUME 9.1 fl (7.4-10.4); PLATELET 268 x1000/uL (130-400); RED BLOOD CELL COUNT 2.57 mill/uL (4.2-5.4); RED CELL DISTRIBUTION WIDTH 20.5 % (11.6-14.6)
[2019-01-03] MEDS: MIDODRINE HCL 5MG TABLET PO SCH ×3 (09:00→18:15)
[2019-01-03] MEDS: LEVOTHYROXINE SODIUM 50MCG TABLET PO SCH (10:14)
[2019-01-03] MEDS: VANCOMYCIN 750 MG PREMIX 150 ML IV SCH ×2 (10:15→23:30)
[2019-01-03] MEDS: POTASSIUM CHLORIDE 20MEQ/PACKET PEG SCH (10:15)
[2019-01-03] MEDS: PANTOPRAZOLE SODIUM 40 MG/VIAL IV SCH (10:15)
[2019-01-03 11:18] LABS: NUCLEATED RED BLOOD CELLS 1 /100 WBC; PLATELET ESTIMATE NORMAL
[2019-01-03] MEDS: METRONIDAZOLE 500 MG PREMIX 100 ML IV SCH ×2 (13:15→21:07)
[2019-01-03] MEDS: VANCOMYCIN HCL 1000 MG/20 ML ORAL PO SCH ×2 (13:15→18:16)
[2019-01-04] VITALS (13 sets, daily range): BP systolic 81–136; BP diastolic 50–68
[2019-01-04] MEDS: METOCLOPRAMIDE HCL 10MG/2ML VIAL IV SCH ×5 (00:41→23:51)
[2019-01-04] MEDS: VANCOMYCIN HCL 1000 MG/20 ML ORAL PO SCH ×5 (00:46→23:51)
[2019-01-04] MEDS: CEFEPIME 2,000 MG in DEXT 5% WATER 100 ML IV SCH ×3 (01:46→23:52)
[2019-01-04] MEDS: IPRATROPIUM/ALBUTEROL 0.5-3(2.5)MG/3ML NEB HHN SCH ×6 (02:07→20:11)
[2019-01-04] MEDS: METRONIDAZOLE 500 MG PREMIX 100 ML IV SCH ×3 (05:07→20:59)
[2019-01-04 06:00] LABS: HEMATOCRIT. 22.2 % (36.0-48.0); HEMOGLOBIN. 7.1 g/dL (12.0-16.0); MEAN CORPUSCULAR HEMOGLOBIN 29.6 pg (28.0-32.0); MEAN CORPUSCULAR VOLUME 92.4 fL (81.0-99.0); PLATELET 292 x1000/uL (130-400); RED CELL DISTRIBUTION WIDTH 19.9 % (11.6-14.6)
[2019-01-04 06:33] LABS: CHLORIDE 111 mEq/L (98-107)
[2019-01-04 07:41] LABS: BG BASE EXCESS 1.9 mmol/L (-2.0-2.0); BG CARBOXYHEMOGLOBIN 0.1 % (0.5-1.5); BG DEOXYHEMOGLOBIN 0.6 % (0.0-5.0); BG HCO3 ACT 26.4 mmol/L (22.0-26.0); BG METHEMOGLOBIN 0.3 % (0.0-1.5); BG OXYGEN SATURATION 99.4 % (92.0-98.5); BG PCO2 40.7 mmHg (35.0-45.0); BG PO2 189.7 mmHg (75.0-100.0); BG SAMPLE SITE RIGHT RADIAL; BG TIDAL VOLUME(mL) 500 mL; BG TOTAL HEMOGLOBIN 7.3 g/dL (12.0-18.0); BG VENT MODE VENT - SIMV; BG VENT RATE 8 set
[2019-01-04] MEDS: VANCOMYCIN 750 MG PREMIX 150 ML IV SCH ×2 (08:58→21:00)
[2019-01-04] MEDS: LEVOTHYROXINE SODIUM 50MCG TABLET PO SCH (08:58)
[2019-01-04] MEDS: MIDODRINE HCL 5MG TABLET PO SCH ×3 (08:58→18:11)
[2019-01-04] MEDS: PANTOPRAZOLE SODIUM 40 MG/VIAL IV SCH (08:58)
[2019-01-04] MEDS: POTASSIUM CHLORIDE 20MEQ/PACKET PEG SCH (08:58)
[2019-01-04 09:52] LABS: PLATELET ESTIMATE NORMAL
[2019-01-04] MEDS: ACETYLCYSTEINE 100MG/ML 10% VIAL 4ML INH SCH (16:05)
[2019-01-05] VITALS (14 sets, daily range): BP systolic 80–147; BP diastolic 45–71
[2019-01-05] MEDS: IPRATROPIUM/ALBUTEROL 0.5-3(2.5)MG/3ML NEB HHN SCH ×6 (00:47→20:44)
[2019-01-05] MEDS: ACETYLCYSTEINE 100MG/ML 10% VIAL 4ML INH SCH ×3 (00:47→12:47)
[2019-01-05] MEDS: METRONIDAZOLE 500 MG PREMIX 100 ML IV SCH ×3 (03:13→20:58)
[2019-01-05] MEDS: METOCLOPRAMIDE HCL 10MG/2ML VIAL IV SCH ×3 (05:46→17:13)
[2019-01-05] MEDS: VANCOMYCIN HCL 1000 MG/20 ML ORAL PO SCH ×3 (05:46→17:13)
[2019-01-05 05:59] LABS: HEMATOCRIT. 23.5 % (36.0-48.0); HEMOGLOBIN. 7.5 g/dL (12.0-16.0); MEAN CORPUSCULAR HEMOGLOBIN 29.6 pg (28.0-32.0); MEAN CORPUSCULAR VOLUME 92.5 fL (81.0-99.0); PLATELET 386 x1000/uL (130-400); RED BLOOD CELL COUNT 2.54 mill/uL (4.2-5.4); RED CELL DISTRIBUTION WIDTH 19.6 % (11.6-14.6)
[2019-01-05 06:46] LABS: CHLORIDE 107 mEq/L (98-107)
[2019-01-05] MEDS: POTASSIUM CHLORIDE 20MEQ/PACKET PEG SCH (08:52)
[2019-01-05] MEDS: LEVOTHYROXINE SODIUM 50MCG TABLET PO SCH (08:52)
[2019-01-05] MEDS: PANTOPRAZOLE SODIUM 40 MG/VIAL IV SCH (08:52)
[2019-01-05] MEDS: MIDODRINE HCL 5MG TABLET PO SCH ×3 (08:52→17:13)
[2019-01-05] MEDS: ZINC SULFATE 220 MG ( 50 ) CAPSULE GT SCH (08:52)
[2019-01-05] MEDS: ASCORBIC ACID 500 MG TABLET PO SCH (08:52)
[2019-01-05] MEDS: VANCOMYCIN 750 MG PREMIX 150 ML IV SCH ×2 (09:01→20:58)
[2019-01-05] MEDS: ACETAMINOPHEN 650MG/20.3ML UDC PO PRN (14:41)
[2019-01-05] MEDS: CEFEPIME 2,000 MG in DEXT 5% WATER 100 ML IV SCH (14:41)
[2019-01-05 15:43] LABS: CLARITY URINE CLOUDY (CLEAR); COLOR URINE YELLOW (YELLOW); KETONES URINE NEGATIVE (NEGATIVE); LEUKOCYTE ESTERASE URINE 1+ (NEGATIVE); NITRITE URINE NEGATIVE (NEGATIVE); OCCULT BLOOD URINE 3+ (NEGATIVE); PROTEIN URINE 2+ (NEGATIVE); SPECIFIC GRAVITY URINE 1.017 (1.005-1.030); UROBILINOGEN URINE 0.2 E.U./dL (0.2-1.0)
[2019-01-05 16:23] LABS: PLATELET ESTIMATE NORMAL
[2019-01-06] VITALS (12 sets, daily range): BP systolic 106–141; BP diastolic 48–70
[2019-01-06] MEDS: ACETYLCYSTEINE 100MG/ML 10% VIAL 4ML INH SCH ×3 (00:27→16:46)
[2019-01-06] MEDS: IPRATROPIUM/ALBUTEROL 0.5-3(2.5)MG/3ML NEB HHN SCH ×6 (00:28→20:42)
[2019-01-06] MEDS: CEFEPIME 2,000 MG in DEXT 5% WATER 100 ML IV SCH ×2 (01:35→12:20)
[2019-01-06] MEDS: METOCLOPRAMIDE HCL 10MG/2ML VIAL IV SCH ×4 (01:35→17:26)
[2019-01-06] MEDS: METRONIDAZOLE 500 MG PREMIX 100 ML IV SCH ×3 (03:01→20:02)
[2019-01-06] MEDS: VANCOMYCIN HCL 1000 MG/20 ML ORAL PO SCH ×4 (05:58→17:27)
[2019-01-06] MEDS: MIDODRINE HCL 5MG TABLET PO SCH ×3 (09:10→17:00)
[2019-01-06] MEDS: LEVOTHYROXINE SODIUM 50MCG TABLET PO SCH (09:10)
[2019-01-06] MEDS: POTASSIUM CHLORIDE 20MEQ/PACKET PEG SCH (09:10)
[2019-01-06] MEDS: PANTOPRAZOLE SODIUM 40 MG/VIAL IV SCH (09:10)
[2019-01-06] MEDS: ASCORBIC ACID 500 MG TABLET PO SCH (09:11)
[2019-01-06] MEDS: ZINC SULFATE 220 MG ( 50 ) CAPSULE GT SCH (09:11)
[2019-01-06] MEDS: VANCOMYCIN 750 MG PREMIX 150 ML IV SCH ×2 (09:22→20:02)
[2019-01-06 12:26] LABS: HEMATOCRIT 22.6 % (36.0-48.0); HEMOGLOBIN 7.2 g/dL (12.0-16.0); MEAN CORPUSCULAR HEMOGLOBIN 29.5 pg (28.0-32.0); MEAN CORPUSCULAR VOLUME 92.3 fL (81.0-99.0); PLATELET 430 x1000/uL (130-400); RED BLOOD CELL COUNT 2.45 mill/uL (4.2-5.4); RED CELL DISTRIBUTION WIDTH 19.7 % (11.6-14.6)
[2019-01-06 12:28] LABS: CHLORIDE 106 mEq/L (98-107)
[2019-01-06] MEDS: FERROUS SULFATE 325MG TABLET PO SCH (17:26)
[2019-01-07] VITALS (18 sets, daily range): BP systolic 93–137; BP diastolic 44–68
[2019-01-07] MEDS: METOCLOPRAMIDE HCL 10MG/2ML VIAL IV SCH ×5 (00:02→23:07)
[2019-01-07] MEDS: VANCOMYCIN HCL 1000 MG/20 ML ORAL PO SCH ×5 (00:03→23:08)
[2019-01-07] MEDS: CEFEPIME 2,000 MG in DEXT 5% WATER 100 ML IV SCH ×2 (00:03→14:12)
[2019-01-07] MEDS: ACETYLCYSTEINE 100MG/ML 10% VIAL 4ML INH SCH ×3 (00:17→17:03)
[2019-01-07] MEDS: IPRATROPIUM/ALBUTEROL 0.5-3(2.5)MG/3ML NEB HHN SCH ×6 (00:18→20:21)
[2019-01-07] MEDS: METRONIDAZOLE 500 MG PREMIX 100 ML IV SCH ×3 (04:21→20:23)
[2019-01-07 07:28] LABS: MEAN CORPUSCULAR HEMOGLOBIN 29.9 pg (28.0-32.0); MEAN CORPUSCULAR VOLUME 91.8 fL (81.0-99.0); MEAN PLATELET VOLUME 8.8 fl (7.4-10.4); PLATELET 428 x1000/uL (130-400); RED BLOOD CELL COUNT 2.29 mill/uL (4.2-5.4)
[2019-01-07 07:56] LABS: HEMOGLOBIN. 6.8 g/dL (12.0-16.0)
[2019-01-07 08:16] LABS: CHLORIDE 106 mEq/L (98-107)
[2019-01-07] MEDS: FERROUS SULFATE 325MG TABLET PO SCH ×3 (09:07→18:11)
[2019-01-07] MEDS: MIDODRINE HCL 5MG TABLET PO SCH ×3 (09:07→18:11)
[2019-01-07] MEDS: ASCORBIC ACID 500 MG TABLET PO SCH (09:07)
[2019-01-07] MEDS: ZINC SULFATE 220 MG ( 50 ) CAPSULE GT SCH (09:07)
[2019-01-07] MEDS: PANTOPRAZOLE SODIUM 40 MG/VIAL IV SCH (09:07)
[2019-01-07] MEDS: POTASSIUM CHLORIDE 20MEQ/PACKET PEG SCH (09:07)
[2019-01-07] MEDS: LEVOTHYROXINE SODIUM 50MCG TABLET PO SCH (09:08)
[2019-01-07] MEDS: VANCOMYCIN 750 MG PREMIX 150 ML IV SCH ×2 (09:16→21:00)
[2019-01-07 12:58] LABS: PLATELET ESTIMATE SLIGHTLY INCREASED
[2019-01-07] MEDS: FLUCONAZOLE 200 MG/100ML BAG 100 ML IV SCH (13:01)
[2019-01-08] VITALS (14 sets, daily range): BP systolic 91–117; BP diastolic 48–61
[2019-01-08] MEDS: ACETYLCYSTEINE 100MG/ML 10% VIAL 4ML INH SCH ×3 (00:18→16:32)
[2019-01-08] MEDS: IPRATROPIUM/ALBUTEROL 0.5-3(2.5)MG/3ML NEB HHN SCH ×6 (00:18→20:49)
[2019-01-08] MEDS: VANCOMYCIN HCL 1000 MG/20 ML ORAL PO SCH ×2 (05:00→12:26)
[2019-01-08] MEDS: METOCLOPRAMIDE HCL 10MG/2ML VIAL IV SCH ×3 (05:00→17:33)
[2019-01-08 06:21] LABS: HEMATOCRIT. 27.5 % (36.0-48.0); HEMOGLOBIN. 9.2 g/dL (12.0-16.0); MEAN CORPUSCULAR HEMOGLOBIN 30.3 pg (28.0-32.0); MEAN CORPUSCULAR VOLUME 90.6 fL (81.0-99.0); MEAN PLATELET VOLUME 8.8 fl (7.4-10.4); PLATELET 444 x1000/uL (130-400); RED BLOOD CELL COUNT 3.04 mill/uL (4.2-5.4)
[2019-01-08 06:42] LABS: CHLORIDE 106 mEq/L (98-107)
[2019-01-08] MEDS: POTASSIUM CHLORIDE 20MEQ/PACKET PEG SCH (08:32)
[2019-01-08] MEDS: FERROUS SULFATE 325MG TABLET PO SCH ×3 (08:33→17:32)
[2019-01-08] MEDS: ASCORBIC ACID 500 MG TABLET PO SCH (08:33)
[2019-01-08] MEDS: PANTOPRAZOLE SODIUM 40 MG/VIAL IV SCH (08:33)
[2019-01-08] MEDS: MIDODRINE HCL 5MG TABLET PO SCH ×3 (08:33→17:32)
[2019-01-08] MEDS: LEVOTHYROXINE SODIUM 50MCG TABLET PO SCH (08:33)
[2019-01-08] MEDS: ZINC SULFATE 220 MG ( 50 ) CAPSULE GT SCH (08:33)
[2019-01-08 09:26] LABS: PLATELET ESTIMATE INCREASED
[2019-01-08] MEDS: FLUCONAZOLE 200 MG/100ML BAG 100 ML IV SCH (12:23)
[2019-01-09] VITALS (12 sets, daily range): BP systolic 85–137; BP diastolic 36–74
[2019-01-09] MEDS: IPRATROPIUM/ALBUTEROL 0.5-3(2.5)MG/3ML NEB HHN SCH ×6 (00:50→20:44)
[2019-01-09] MEDS: ACETYLCYSTEINE 100MG/ML 10% VIAL 4ML INH SCH ×3 (00:51→16:54)
[2019-01-09] MEDS: METOCLOPRAMIDE HCL 10MG/2ML VIAL IV SCH ×4 (01:28→17:57)
[2019-01-09] MEDS: LEVOTHYROXINE SODIUM 50MCG TABLET PO SCH (06:29)
[2019-01-09 06:41] LABS: BASOPHILS % 0.9 % (0.0-2.0); EOSINOPHILS % 1.3 % (0.0-5.0); HEMATOCRIT. 27.9 % (36.0-48.0); HEMOGLOBIN. 9.3 g/dL (12.0-16.0); LYMPHOCYTES % 8.6 % (20.0-50.0); MEAN CORPUSCULAR HEMOGLOBIN 30.1 pg (28.0-32.0); MEAN CORPUSCULAR VOLUME 90.7 fL (81.0-99.0); MEAN PLATELET VOLUME 8.3 fl (7.4-10.4); MONOCYTES % 6.3 % (2.0-8.0); NEUTROPHILS % 82.9 % (40.0-76.0); PLATELET 489 x1000/uL (130-400); RED BLOOD CELL COUNT 3.08 mill/uL (4.2-5.4); RED CELL DISTRIBUTION WIDTH 17.7 % (11.6-14.6)
[2019-01-09] MEDS: ASCORBIC ACID 500 MG TABLET PO SCH (08:38)
[2019-01-09] MEDS: PANTOPRAZOLE SODIUM 40 MG/VIAL IV SCH (08:39)
[2019-01-09] MEDS: ZINC SULFATE 220 MG ( 50 ) CAPSULE GT SCH (08:39)
[2019-01-09] MEDS: FERROUS SULFATE 325MG TABLET PO SCH ×3 (08:39→17:56)
[2019-01-09] MEDS: MIDODRINE HCL 5MG TABLET PO SCH ×3 (08:39→17:57)
[2019-01-09] MEDS: POTASSIUM CHLORIDE 20MEQ/PACKET PEG SCH (08:39)
[2019-01-09 08:47] LABS: CHLORIDE 105 mEq/L (98-107)
[2019-01-09] MEDS: FLUCONAZOLE 200 MG/100ML BAG 100 ML IV SCH (13:07)
[2019-01-10] VITALS (8 sets, daily range): BP systolic 91–127; BP diastolic 54–78
[2019-01-10] MEDS: IPRATROPIUM/ALBUTEROL 0.5-3(2.5)MG/3ML NEB HHN SCH ×3 (00:27→09:23)
[2019-01-10] MEDS: METOCLOPRAMIDE HCL 10MG/2ML VIAL IV SCH ×3 (00:40→11:17)
[2019-01-10] MEDS: FERROUS SULFATE 325MG TABLET PO SCH (08:02)
[2019-01-10] MEDS: LEVOTHYROXINE SODIUM 50MCG TABLET PO SCH (08:02)
[2019-01-10 08:05] LABS: BASOPHILS % 0.9 % (0.0-2.0); EOSINOPHILS % 0.9 % (0.0-5.0); HEMATOCRIT. 30.7 % (36.0-48.0); HEMOGLOBIN. 10.1 g/dL (12.0-16.0); LYMPHOCYTES % 11.8 % (20.0-50.0); MEAN CORPUSCULAR VOLUME 91.4 fL (81.0-99.0); MONOCYTES % 7.2 % (2.0-8.0); NEUTROPHILS % 79.2 % (40.0-76.0); PLATELET 574 x1000/uL (130-400); RED BLOOD CELL COUNT 3.36 mill/uL (4.2-5.4); RED CELL DISTRIBUTION WIDTH 18.2 % (11.6-14.6)
[2019-01-10 08:29] LABS: CHLORIDE 107 mEq/L (98-107)
[2019-01-10 08:43] LABS: BG BASE EXCESS 4.2 mmol/L (-2.0-2.0); BG CARBOXYHEMOGLOBIN 0.3 % (0.5-1.5); BG DEOXYHEMOGLOBIN 1.1 % (0.0-5.0); BG FRACTION INSPIRED OXYGEN 40; BG HCO3 ACT 28.6 mmol/L (22.0-26.0); BG METHEMOGLOBIN 0.3 % (0.0-1.5); BG OXYGEN SATURATION 98.9 % (92.0-98.5); BG OXYHEMOGLOBIN 98.3 % (94.0-97.0); BG PCO2 42.4 mmHg (35.0-45.0); BG PH 7.447 (7.350-7.450); BG PO2 144.5 mmHg (75.0-100.0); BG SAMPLE SITE RIGHT RADIAL; BG TIDAL VOLUME(mL) 500 mL; BG TOTAL HEMOGLOBIN 11.1 g/dL (12.0-18.0); BG VENT MODE VENT - A/C; BG VENT RATE 6 set
[2019-01-10] MEDS: POTASSIUM CHLORIDE 20MEQ/PACKET PEG SCH (09:52)
[2019-01-10] MEDS: ASCORBIC ACID 500 MG TABLET PO SCH (09:53)
[2019-01-10] MEDS: ZINC SULFATE 220 MG ( 50 ) CAPSULE GT SCH (09:53)
[2019-01-10] MEDS: MIDODRINE HCL 5MG TABLET PO SCH (09:53)
[2019-01-10] MEDS: PANTOPRAZOLE SODIUM 40 MG/VIAL IV SCH (09:53)
[2019-01-10] MEDS: FLUCONAZOLE 200 MG/100ML BAG 100 ML IV SCH (11:17)
== END 2019-01-10 13:10 | DRG 853 ==
LOC: ER 17:12 → CVICU 22:22 → CANRESERV 22:32 → ENRESERV 22:32 → 5EST 12-31 18:28
PROVIDERS: ADMIT Internal Medicine Nephrology; ATTEND Internal Medicine Nephrology
PROC: 5A1955Z Respiratory Ventilation, Greater than 96 Consecutive Hours (ICD-10-PCS; principal; 2018-12-29)
PROC: 0KBP0ZZ Excision of Left Hip Muscle, Open Approach (ICD-10-PCS; 2019-01-02)
PROC: 0KBN0ZZ Excision of Right Hip Muscle, Open Approach (ICD-10-PCS; 2019-01-02)
PROC: 02HV33Z Insertion of Infusion Device into Superior Vena Cava, Percutaneous Approach (ICD-10-PCS; 2019-01-07)
PROC: B548ZZA Ultrasonography of Superior Vena Cava, Guidance (ICD-10-PCS; 2019-01-07)
PROC: 30233N1 Transfusion of Nonautologous Red Blood Cells into Peripheral Vein, Percutaneous Approach (ICD-10-PCS; 2019-01-07)
DX: A41.9 Sepsis, unspecified organism (principal); L89.154 Pressure ulcer of sacral region, stage 4; E43 Unspecified severe protein-calorie malnutrition; J96.21 Acute and chronic respiratory failure with hypoxia; N17.0 Acute kidney failure with tubular necrosis; R65.21 Severe sepsis with septic shock; J69.0 Pneumonitis due to inhalation of food and vomit; G93.41 Metabolic encephalopathy; N39.0 Urinary tract infection, site not specified; E87.1 Hypo-osmolality and hyponatremia; E87.2 Acidosis; J44.1 Chronic obstructive pulmonary disease with (acute) exacerbation; E87.0 Hyperosmolality and hypernatremia; N13.30 Unspecified hydronephrosis; I82.C12 Acute embolism and thrombosis of left internal jugular vein; R18.8 Other ascites; E87.5 Hyperkalemia; E87.8 Other disorders of electrolyte and fluid balance, not elsewhere classified; I11.0 Hypertensive heart disease with heart failure; I50.9 Heart failure, unspecified; E87.6 Hypokalemia; E03.9 Hypothyroidism, unspecified; F03.90 Unspecified dementia, unspecified severity, without behavioral disturbance, psychotic disturbance, mood disturbance, and anxiety; D63.8 Anemia in other chronic diseases classified elsewhere; I49.5 Sick sinus syndrome; K52.9 Noninfective gastroenteritis and colitis, unspecified; D18.00 Hemangioma unspecified site; D50.9 Iron deficiency anemia, unspecified; K80.80 Other cholelithiasis without obstruction; D25.9 Leiomyoma of uterus, unspecified; E86.0 Dehydration; D18.03 Hemangioma of intra-abdominal structures; K80.20 Calculus of gallbladder without cholecystitis without obstruction; R47.02 Dysphasia; Z85.850 Personal history of malignant neoplasm of thyroid; Z93.0 Tracheostomy status; Z86.73 Personal history of transient ischemic attack (TIA), and cerebral infarction without residual deficits; Z95.0 Presence of cardiac pacemaker; Z93.1 Gastrostomy status; Z87.01 Personal history of pneumonia (recurrent); Z85.819 Personal history of malignant neoplasm of unspecified site of lip, oral cavity, and pharynx; Z85.21 Personal history of malignant neoplasm of larynx; Z68.25 Body mass index [BMI] 25.0-25.9, adult
CPT/HCPCS: 36415; 36600; 71045; 71250; 74176; 76700; 76770; 76937; 78580; 80048; 80202; 81003; 82375; 82728; 82805; 83540; 83550; 83605; 83880; 84134; 84145; 84439; 84443; 84481; 84484; 85027; 85379; 86850; 86900; 86920; 87070; 87077; 87186; 87493; 93005; 93970; 94002; 94003; 94640; 96365; 99291; A6261; C1725; C9113; J0456; J0692; J1450; J1956; J2543; J2765; J3370; J3490; J7030; J7040; J7060; J7608; J7620; P9016

== ENCOUNTER 2019-08-17 13:05 | Inpatient (IN) | payer MEDICARE, MEDICAID ==
[~2019-08-17] VITALS: Ht 160 cm; Wt 56.7 kg
[2019-08-17] MEDS: PANTOPRAZOLE SODIUM 40 MG/VIAL IV SCH (02:30)
[2019-08-17 14:54] LABS: T4 FREE 1.12 ng/dL (0.76-1.46)
[2019-08-17 15:05] LABS: CLARITY URINE CLEAR (CLEAR); COLOR URINE YELLOW (YELLOW); KETONES URINE NEGATIVE (NEGATIVE); LEUKOCYTE ESTERASE URINE 3+ (NEGATIVE); NITRITE URINE NEGATIVE (NEGATIVE); OCCULT BLOOD URINE 2+ (NEGATIVE); PH URINE 8.5 (4.5-8.0); PROTEIN URINE 1+ (NEGATIVE); SPECIFIC GRAVITY URINE 1.013 (1.005-1.030); UROBILINOGEN URINE 0.2 E.U./dL (0.2-1.0)
[2019-08-17] MEDS ORDERED: CEFTRIAXONE 1 G PREMIX 50 ML IV ONE (15:30)
[2019-08-17 15:33] LABS: BG BASE EXCESS 7.3 mmol/L (-2.0-2.0); BG CARBOXYHEMOGLOBIN 0.3 % (0.5-1.5); BG DEOXYHEMOGLOBIN 1.7 % (0.0-5.0); BG FRACTION INSPIRED OXYGEN 60; BG HCO3 ACT 32.5 mmol/L (22.0-26.0); BG METHEMOGLOBIN 0.3 % (0.0-1.5); BG OXYGEN SATURATION 98.3 % (92.0-98.5); BG OXYHEMOGLOBIN 97.7 % (94.0-97.0); BG PCO2 48.6 mmHg (35.0-45.0); BG PH 7.443 (7.350-7.450); BG PO2 117.9 mmHg (75.0-100.0); BG SAMPLE SITE RIGHT RADIAL; BG TOTAL HEMOGLOBIN 11.8 g/dL (12.0-18.0); BG VENT MODE MASK - VENTI
[2019-08-17 16:16] LABS: CHLORIDE 99 mEq/L (98-107)
[2019-08-17 16:18] LABS: BASOPHILS % 1.1 % (0.0-2.0); EOSINOPHILS % 2.8 % (0.0-5.0); HEMATOCRIT. 33.4 % (36.0-48.0); HEMOGLOBIN. 11.4 g/dL (12.0-16.0); LYMPHOCYTES % 16.8 % (20.0-50.0); MEAN CORPUSCULAR VOLUME 96.8 fL (81.0-99.0); MEAN PLATELET VOLUME 8.3 fl (7.4-10.4); MONOCYTES % 7.8 % (2.0-8.0); NEUTROPHILS % 71.5 % (40.0-76.0); PLATELET 287 x1000/uL (130-400); RED BLOOD CELL COUNT 3.45 mill/uL (4.2-5.4); RED CELL DISTRIBUTION WIDTH 15.1 % (11.6-14.6)
[2019-08-17] MEDS ORDERED: SODIUM CHLORIDE 0.9% 500 ML IV ONE (17:18)
[2019-08-17 19:23] VITALS: BP 136/73
[2019-08-17 20:00] VITALS: BP 121/70
[2019-08-17] MEDS ORDERED: ACETAMINOPHEN 650MG/20.3ML UDC GT PRN (20:15)
[2019-08-17] MEDS ORDERED: ONDANSETRON HCL 4MG/2ML INJ IV PRN (20:15)
[2019-08-17] MEDS ORDERED: CLONIDINE 0.1MG TABLET PO PRN (20:15)
[2019-08-17] MEDS ORDERED: LORAZEPAM 2MG/ML CPJ IV PRN (20:15)
[2019-08-17] MEDS: ENOXAPARIN 30MG/0.3ML SYR SUBCUT SCH (21:00)
[2019-08-17] MEDS ORDERED: IPRATROPIUM/ALBUTEROL 0.5-3(2.5)MG/3ML NEB HHN PRN (21:00)
[2019-08-17] MEDS ORDERED: METOCLOPRAMIDE HCL 10MG TABLET PO PRN (21:00)
[2019-08-17] MEDS ORDERED: METO-293 PO (21:20)
[2019-08-17] MEDS ORDERED: ASCO-339 PO (21:20)
[2019-08-17] MEDS ORDERED: MIDO5TAB4 PO (21:20)
[2019-08-17] MEDS ORDERED: DOCU-138 PO (21:20)
[2019-08-17] MEDS ORDERED: BISA10SU62 RC (21:20)
[2019-08-17] MEDS ORDERED: FE300LUD MT (21:20)
[2019-08-17] MEDS ORDERED: ZINC SULFATE GT (21:20)
[2019-08-17] MEDS ORDERED: LEVO100T9 GT (21:20)
[2019-08-17 22:00] VITALS: BP 110/55
[2019-08-17] MEDS: DEXT 5%/0.45% NACL 1000ML 1,000 ML IV SCH (22:15)
[2019-08-17] MEDS: MIDODRINE HCL 5MG TABLET GT SCH (22:48)
[2019-08-18] VITALS (12 sets, daily range): BP systolic 112–151; BP diastolic 59–83
[2019-08-18] MEDS: IPRATROPIUM/ALBUTEROL 0.5-3(2.5)MG/3ML NEB HHN PRN ×3 (01:23→14:51)
[2019-08-18] MEDS: MIDODRINE HCL 5MG TABLET GT SCH ×3 (05:02→21:05)
[2019-08-18 07:44] LABS: HEMATOCRIT. 33.3 % (36.0-48.0); HEMOGLOBIN. 11.3 g/dL (12.0-16.0); LYMPHOCYTES % 18.3 % (20.0-50.0); MEAN CORPUSCULAR HEMOGLOBIN 33.1 pg (28.0-32.0); MEAN CORPUSCULAR VOLUME 97.5 fL (81.0-99.0); MEAN PLATELET VOLUME 8.6 fl (7.4-10.4); MONOCYTES % 8.7 % (2.0-8.0); PLATELET 247 x1000/uL (130-400); RED BLOOD CELL COUNT 3.41 mill/uL (4.2-5.4)
[2019-08-18 08:28] LABS: CHLORIDE 101 mEq/L (98-107)
[2019-08-18] MEDS: PANTOPRAZOLE SODIUM 40 MG/VIAL IV SCH (08:54)
[2019-08-18] MEDS: FERROUS SULFATE 300MG/5ML UDC GT SCH (08:54)
[2019-08-18] MEDS: ZINC SULFATE 220 MG ( 50 ) CAPSULE PO SCH (08:54)
[2019-08-18] MEDS ORDERED: LIDOCAINE HCL 1% 20ML VIAL (Pyxis) INJ ONE (08:58)
[2019-08-18] MEDS ORDERED: SODIUM BICARBONATE 4% (2.4MEQ) 5ML VIAL IV ONE (08:58)
[2019-08-18] MEDS ORDERED: BISACODYL 10MG SUPP RC SCH (09:00)
[2019-08-18] MEDS ORDERED: LEVOTHYROXINE SODIUM 100MCG TABLET GT SCH (09:00)
[2019-08-18] MEDS: DOCUSATE SODIUM 100MG CAPSULE PO SCH (09:19)
[2019-08-18] MEDS ORDERED: LEVOTHYROXINE SODIUM 112MCG TABLET PO SCH (10:30)
[2019-08-18] MEDS ORDERED: METOCLOPRAMIDE HCL 5MG TABLET PO PRN (10:30)
[2019-08-18] MEDS: ASCORBIC ACID 500 MG TABLET PO SCH (11:12)
[2019-08-18] MEDS: DEXT 5%/0.45% NACL 1000ML 1,000 ML IV SCH (12:55)
[2019-08-18] MEDS: CEFTRIAXONE 1 G PREMIX 50 ML IV SCH (16:04)
[2019-08-18] MEDS: VANCOMYCIN 750 MG PREMIX 150 ML IV SCH (17:03)
[2019-08-18] MEDS: ENOXAPARIN 30MG/0.3ML SYR SUBCUT SCH (21:04)
[2019-08-19] VITALS (15 sets, daily range): BP systolic 112–150; BP diastolic 55–84
[2019-08-19] MEDS: IPRATROPIUM/ALBUTEROL 0.5-3(2.5)MG/3ML NEB HHN PRN (00:48)
[2019-08-19] MEDS: MIDODRINE HCL 5MG TABLET GT SCH ×3 (05:21→22:03)
[2019-08-19] MEDS: DEXT 5%/0.45% NACL 1000ML 1,000 ML IV SCH ×2 (05:29→22:04)
[2019-08-19] MEDS: FAMOTIDINE 20MG TABLET GT SCH (08:20)
[2019-08-19] MEDS: LEVOTHYROXINE SODIUM 112MCG TABLET PO SCH (08:20)
[2019-08-19] MEDS: FERROUS SULFATE 300MG/5ML UDC GT SCH (08:20)
[2019-08-19] MEDS: DOCUSATE SODIUM 100MG CAPSULE PO SCH (08:21)
[2019-08-19] MEDS: ASCORBIC ACID 500 MG TABLET PO SCH (08:21)
[2019-08-19] MEDS: ZINC SULFATE 220 MG ( 50 ) CAPSULE PO SCH (08:21)
[2019-08-19] MEDS: VANCOMYCIN 750 MG PREMIX 150 ML IV SCH (11:02)
[2019-08-19] MEDS: CEFTRIAXONE 1 G PREMIX 50 ML IV SCH (15:37)
[2019-08-19] MEDS: ENOXAPARIN 30MG/0.3ML SYR SUBCUT SCH (22:02)
[2019-08-20] VITALS (17 sets, daily range): BP systolic 103–162; BP diastolic 55–102
[2019-08-20] MEDS: MIDODRINE HCL 5MG TABLET GT SCH ×2 (05:03→13:12)
[2019-08-20] MEDS: VANCOMYCIN 750 MG PREMIX 150 ML IV SCH (05:03)
[2019-08-20] MEDS: ZINC SULFATE 220 MG ( 50 ) CAPSULE PO SCH (08:29)
[2019-08-20] MEDS: ASCORBIC ACID 500 MG TABLET PO SCH (08:29)
[2019-08-20] MEDS: FAMOTIDINE 20MG TABLET GT SCH (08:29)
[2019-08-20] MEDS: DOCUSATE SODIUM 100MG CAPSULE PO SCH (08:29)
[2019-08-20] MEDS: LEVOTHYROXINE SODIUM 112MCG TABLET PO SCH (08:29)
[2019-08-20] MEDS: FERROUS SULFATE 300MG/5ML UDC GT SCH (08:31)
[2019-08-20] MEDS ORDERED: LEVOFLOXACIN 500MG PREMIX 100 ML IV SCH (13:00)
[2019-08-20] MEDS ORDERED: NITROFURANTOIN 100MG M/M CAPSULE PO SCH (13:30)
== END 2019-08-20 20:05 | DRG 871 ==
LOC: ER 13:19 → 5EST 16:04 → EDBEDREQSVC 16:11 → EDBEDREQ 16:11 → EDBEDREQSVC 16:20 → ENRESERV 17:36
PROVIDERS: ADMIT Hospitalist; ATTEND Hospitalist
PROC: 02HV33Z Insertion of Infusion Device into Superior Vena Cava, Percutaneous Approach (ICD-10-PCS; principal; 2019-08-18)
PROC: B548ZZA Ultrasonography of Superior Vena Cava, Guidance (ICD-10-PCS; 2019-08-18)
DX: A41.51 Sepsis due to Escherichia coli [E. coli] (principal); E43 Unspecified severe protein-calorie malnutrition; L89.154 Pressure ulcer of sacral region, stage 4; J96.20 Acute and chronic respiratory failure, unspecified whether with hypoxia or hypercapnia; G93.40 Encephalopathy, unspecified; I42.9 Cardiomyopathy, unspecified; N39.0 Urinary tract infection, site not specified; Z99.11 Dependence on respirator [ventilator] status; D63.8 Anemia in other chronic diseases classified elsewhere; E03.9 Hypothyroidism, unspecified; E78.5 Hyperlipidemia, unspecified; F03.90 Unspecified dementia, unspecified severity, without behavioral disturbance, psychotic disturbance, mood disturbance, and anxiety; H54.8 Legal blindness, as defined in USA; I11.0 Hypertensive heart disease with heart failure; I48.91 Unspecified atrial fibrillation; I50.9 Heart failure, unspecified; R47.02 Dysphasia; L89.90 Pressure ulcer of unspecified site, unspecified stage; I49.5 Sick sinus syndrome; B95.2 Enterococcus as the cause of diseases classified elsewhere; Z20.828 Contact with and (suspected) exposure to other viral communicable diseases; Z74.01 Bed confinement status; Z85.819 Personal history of malignant neoplasm of unspecified site of lip, oral cavity, and pharynx; Z86.73 Personal history of transient ischemic attack (TIA), and cerebral infarction without residual deficits; Z98.61 Coronary angioplasty status; Z87.01 Personal history of pneumonia (recurrent); Z87.440 Personal history of urinary (tract) infections; Z93.0 Tracheostomy status; Z68.22 Body mass index [BMI] 22.0-22.9, adult; B95.7 Other staphylococcus as the cause of diseases classified elsewhere
CPT/HCPCS: 36415; 36600; 71045; 76937; 80053; 81003; 82375; 82805; 83605; 83880; 84134; 84439; 84443; 84481; 84484; 85025; 86850; 86900; 87077; 87186; 93005; 93970; 99291; C1725; C9113; J0696; J1650; J1956; J2060; J3370; J3490; J7040; U0003-CS